=== PATIENT | female | born 1980 | race Caucasian/White ===

== ENCOUNTER 2020-04-29 17:25 | Outpatient (CLI) | payer OTHER, SELFPAY ==
--- NOTE | ~2020-04-29 | XR_ITS ---
EXAMINATION: XR lumbar spine 2-3V, XR sacroiliac joints min 3V DATE: 04/29/2020 17:47 INDICATION: Psoriatic arthritis TECHNIQUE: 1. Anteroposterior and lateral views of the lumbar spine, and cone-down lateral view of the lumbosacr al junction were obtained. 2. AP and left and right oblique views of the sacroiliac joints were obtained. COMPARISON: None. FINDINGS: Lumbar spine: Alignment is normal. Vertebral body and disc heights are normal. No significant facet osteoarthritis appreciated. Cholecystectomy clips in the right upper quadrant. Sacroiliac joints: Pelvic alignment is normal. No fractures or suspected avascular necrosis. Bilateral sacral iliac join t spaces are normal and symmetric. No evident erosions or subarticular sclerosis to suggest an inflam matory sacroiliitis. Bilateral hip joint spaces are normal. Bone islands at the left pubic body, left sacral ala and at the intertrochanteric right femur. IMPRESSION: 1. A few scattered bone islands. Otherwise normal radiographs of the lumbar spine and sacroiliac join ts. Reviewed, dictated and finalized at location A. IMPRESSION: 1. A few scattered bone islands. Otherwise normal radiographs of the lumbar spi ne and sacroiliac joints.
== END 2020-04-29 17:26 | disposition home or self-care (01) ==
PROVIDERS: PCP Internal Medicine
DX: L40.50 Arthropathic psoriasis, unspecified (principal); M24.08 Loose body, other site
CPT/HCPCS: 72100; 72202

== ENCOUNTER → 2020-11-19 11:28 | Outpatient (CLI) | payer OTHER, SELFPAY ==
--- NOTE | ~2020-11-19 | XR_ITS ---
EXAMINATION: XR knee LT 3V DATE: 11/19/2020 11:54 INDICATION: Left knee pain TECHNIQUE: Three views of the left knee were obtained. COMPARISON: None. FINDINGS: Alignment is normal. No fracture or osteochondral lesion. Joint spaces are normal with no e rosions. No joint effusion/synovitis. Soft tissues are unremarkable. IMPRESSION: 1. No acute osseous abnormality. Reviewed, dictated and finalized at location A. ROOFER
== END ==
PROVIDERS: PCP Internal Medicine; Visit Provider Nurse Practitioner
DX: M25.562 Pain in left knee (principal)
CPT/HCPCS: 73562

== ENCOUNTER 2020-12-09 10:51 | Outpatient (NON) | payer OTHER, SELFPAY ==
[2020-12-09 21:25] LABS: SARS-CoV-2 RNA PCR Positive
== END 2020-12-09 10:52 ==
LOC: ANHCOVIDDT 10:52
PROVIDERS: PCP Internal Medicine; Visit Provider Nurse Practitioner
DX: U07.1 COVID-19 (principal)
CPT/HCPCS: C9803; U0003; U0005

== ENCOUNTER 2021-01-09 16:13 | Outpatient (CLI) | payer OTHER, SELFPAY ==
--- NOTE | ~2021-01-09 | XR_ITS ---
XR chest 2V DATE: 01/09/2021 16:59 INDICATION: Cough for 2 weeks. Covid infection last month. TECHNIQUE: PA and lateral views COMPARISON: 11/27/2014 right rib series FINDINGS: Normal heart size. No hilar or mediastinal enlargement. No pulmonary infiltrate or consolid ation, pleural effusion or pulmonary vascular congestion or pneumothorax. IMPRESSION: No active cardiopulmonary disease Reviewed, dictated and finalized at location B. 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
== END 2021-01-09 16:14 | disposition home or self-care (01) ==
LOC: ANHIMG 16:17
PROVIDERS: PCP Internal Medicine; Visit Provider Clinical Nurse Specialist
DX: R05 Cough (principal)
CPT/HCPCS: 71046

== ENCOUNTER 2021-01-24 09:37 | Outpatient (CLI) | payer OTHER, BC, SELFPAY ==
--- NOTE | 2021-01-24 09:48 | ECHO_ITS ---
Patient Info Name: Ella Cheung Age: 40 years : 1980 Gender: Female Ht: 66 in Wt: 191 lbs BSA: 2.04 m2 HR: 75 bpm BP: 118 / 89 mmHg Technical Quality: Good Exam Date: 01/24/2021 10:07 AM Exam Location: [facility] Patient Status: Outpatient Admit Date: 01/24/2021 Staff Ordering Physician: Jennifer Yeager Ada Accommodation Consultant: Zoë Dooley RDCS Attending Provider: Jennifer Yeager Referring Physician: Shobha MENENDEZ; Exam Type: CA echo doppler color flow Study Info Indications R06.02 - Shortness of breath Complete two-dimensional, color flow and Doppler transthoracic echocardiogram is performed. Summary 1. Complete two-dimensional, color flow and Doppler transthoracic echocardiogram is performed. 2. Left ventricular chamber dimension is normal. 3. Left ventricular systolic function is normal, estimated at 60-65%. 4. The left ventricular diastolic function is normal. 5. E/e' 5 is not elevated. 6. Global longitudinal strain is normal at -18.6%. 7. No pulmonary hypertension, estimated pulmonary arterial systolic pressure is 18 mmHg. Left Ventricle E/e' 5 is not elevated. Global longitudinal strain is normal at -18.6%. Left ventricular chamber dimension is normal. Left ventricular systolic function is normal, estimated at 60-65%. The left ventricular diastolic function is normal. Right Ventricle Right ventricular chamber dimension is normal. Right ventricular systolic function is normal. Left Atria Left atrial chamber dimension is normal. Right Atria Right atrial chamber dimension is normal. Aortic Valve The aortic valve is trileaflet. There is no aortic valve stenosis. There is no aortic valve regurgitation. Pulmonic Valve There is no pulmonic regurgitation. Mitral Valve There is no mitral valve stenosis. There is no mitral valve regurgitation. Tricuspid Valve There is no tricuspid valve regurgitation. No pulmonary hypertension, estimated pulmonary arterial systolic pressure is 18 mmHg. Pericardium/Pleural There is no pericardial effusion. Inferior Vena Cava Normal inferior vena cava with >50% collapse upon inspiration consistent with normal right atrial pressure, 5 mmHg. Aorta The aortic root size at the sinus of Valsalva is normal. Left Ventricular Outflow Tract Name Value Normal LVOT 2D LVOT Diameter 2.0 cm LVOT Doppler LVOT Peak Gradient 3 mmHg LVOT Mean Gradient 2 mmHg LVOT VTI 17 cm LVOT VTI/AV VTI Ratio 1.0 LVOT Stroke Volume 57 ml LVOT CO 4.4 l/min LVOT CI 2.1 l/min/m2 Pulmonic Valve Name Value Normal RVOT Doppler RVOT Peak Gradient 2 mmHg
== END 2021-01-24 09:38 | disposition home or self-care (01) ==
PROVIDERS: PCP Internal Medicine; Visit Provider Clinical Nurse Specialist
DX: R06.02 Shortness of breath (principal)
CPT/HCPCS: 93306

== ENCOUNTER 2021-06-22 12:14 | Emergency (ER) | payer OTHER, SELFPAY ==
[2021-06-22 12:24] VITALS: BP 131/78; PULSE 77; RESP 20; TEMP 37.6; O2SAT 100
--- NOTE | 2021-06-22 13:14 | ED.HA ---
HPI - Headache General Chief Complaint: Headache Stated Complaint: headache since wednesday Time Seen by Provider: 06/22/21 13:16 Source: patient Mode of arrival: ambulatory Limitations: no limitations History of Present Illness HPI Narrative: Ella Cheung is a 41 yo female with a PMH of hypothyroid, migraine, hypertension, comes to [facility] with complaints of a headache that started on Wednesday and has been unresponsive to typical migraine medication. She is afebrile no nausea or vomiting has some photophobia is also complaining of pain at the back of her neck. Related Data Home Medications Medication Instructions Recorded Confirmed adalimumab 40 mg/0.8 mL 40 mg SUB-Q ONCE 10/05/19 06/22/21 subcutaneous syringe kit duloxetine 60 mg capsule,delayed 60 mg PO BID 10/05/19 06/22/21 release levothyroxine 100 mcg tablet 100 mcg PO DAILY 11/19/20 06/22/21 Allergies Allergy/AdvReac Type Severity Reaction Status Date / Time metronidazole Allergy Unknown Abdominal Verified 06/22/21 13:06 pain hydroquinone Allergy heart Verified 06/22/21 13:06 issues hydroxychloroquine AdvReac Other Verified 06/22/21 13:06 Review of Systems Review of Systems: CONSTITUTIONAL: Denies fever, chills, sweats. EYES: Denies visual changes, redness, discharge. ENT: Denies rhinorrhea, congestion, sore throat, otalgia. CARDIOVASCULAR: Denies chest pain, palpitations, edema. RESPIRATORY: Denies dyspnea, wheezing, cough GASTROINTESTINAL: Denies abdominal pain, no nausea, vomiting, diarrhea. GENITOURINARY: Denies dysuria, hematuria, abnormal discharge SKIN: Denies rash or itching. NEUROLOGIC: Denies numbness, or focal weakness. Mild photophobia, headache that she rates a 6 out of 10 PSYCHIATRIC: Denies anxiety or depression. States she no longer is concerned about Covid has got a rapid test yesterday that was negative PMFSH Past Medical History Medical History Allergies Bronchitis Chicken pox Cholecystectomy planned 1998 Depression Fibromyalgia H/O Magdalena thyroiditis History of ITP Hot flashes Hypertension Migraine Obesity Psoriatic arthritis Thyroid disease Surgical History Surgical History History of Mayur fundoplication 2016 History of partial hysterectomy 07/2015 Hx of laparoscopic gastric banding Family History Family History Grandparent Family history of malignant neoplasm of breast in first degree relative Cerebrovascular accident Father Depression Hypertension Anxiety Mother Hypertension Thyroid disease Social History Social History Smoking status: Never smoker Smoking end date: 11/22/08 Alcohol intake: current Alcohol use details: social Substance use: never Comments New give her Toradol yet I have to put nondominant side Exam Narrative: GENERAL: This is a well-nourished, well-developed patient, in mild distress. HEAD: normocephalic, atraumatic. EYES: PERRL. Sclera clear/white. Vision is grossly intact. EARS: External ears normal, auditory right canal clear and without drainage, left has mild erythema, TMs normal without perforation. Hearing grossly intact. NOSE: External nose normal without nasal discharge, nares without redness, no rhinorrhea. No sinus tenderness THROAT: Mucous membranes moist, posterior pharynx mild erythema NECK: Neck supple, non-tender CARDIOVASCULAR: Regular rate and rhythm without murmurs, gallops, or rubs. RESPIRATORY: Clear to auscultation. Breath sounds equal bilaterally. No wheezes, rales, or rhonchi. GASTROINTESTINAL: Abdomen soft, non-tender, SKIN: warm, intact with no suspicious lesions or rash, good texture and turgor. NEURO: awake, alert, and oriented to person, place and time. There were no obvious focal neurologic abnorm
[2021-06-22] MEDS: KETOROLAC (*BKC) 60 MG/2 ML VIAL IM (13:40)
[2021-06-22] MEDS: diphenhydrAMINE HCl CAP 25 MG CAPSULE PO (13:40)
[2021-06-23 13:59] LABS: SARS-CoV-2 RNA PCR Negative
== END 2021-06-22 15:06 | disposition home or self-care (01) ==
PROVIDERS: Emergency Provider Nurse Practitioner; PCP Internal Medicine
DX: R51.9 Headache, unspecified (principal); Z20.822 Contact with and (suspected) exposure to COVID-19; M79.7 Fibromyalgia; E06.3 Autoimmune thyroiditis; I10 Essential (primary) hypertension; L40.50 Arthropathic psoriasis, unspecified; E66.9 Obesity, unspecified; Z68.29 Body mass index [BMI] 29.0-29.9, adult
CPT/HCPCS: 36416; 86308; 87426; 96372; 99213; A9270; C9803; G0463; J1885; U0003; U0005

== ENCOUNTER → 2021-07-03 14:19 | Outpatient (CLI) | payer OTHER, SELFPAY ==
--- NOTE | ~2021-07-03 | MR_ITS ---
EXAMINATION: MR brain/brain stem wo/w con DATE: 07/03/2021 15:46 INDICATION: Migraine headache. TECHNIQUE: Magnetic resonance imaging (MRI) of the brain and brainstem was performed without and with 16 mL MultiHance intravenous contrast. Sequences included sagittal and axial T1-weighted FSE, axial diffusion-weighted FS EPI, axial T2*-weighted GRE, axial T2-weighted FLAIR Propeller, and axial T2-we ighted Propeller. Postcontrast sequences included axial and coronal T1-weighted FSE. Apparent diffusi on coefficient (ADC) maps were created. COMPARISON: Head CT 09/07/2017 FINDINGS: There is no intracranial hemorrhage, acute infarction, or abnormal intracranial mass lesion . The ventricles are normal in size. The orbits are normal. The paranasal sinuses are clear. There is a trace right mastoid effusion. IMPRESSION: 1. Normal brain. Reviewed, dictated and finalized at location A. IMPRESSION: 1. Normal brain.
[2021-07-03 15:10] LABS: Estimated Glomerular Filt Rate > 60
== END ==
PROVIDERS: PCP Internal Medicine; Visit Provider Nurse Practitioner
DX: G43.909 Migraine, unspecified, not intractable, without status migrainosus (principal)
CPT/HCPCS: 70553; A9577

== ENCOUNTER → 2021-08-20 02:21 | Outpatient (CLI) | payer OTHER, SELFPAY ==
[2021-08-21 07:19] LABS: SARS-CoV-2 RNA PCR Negative
== END ==
PROVIDERS: PCP Internal Medicine; Visit Provider Clinical Nurse Specialist
DX: Z20.822 Contact with and (suspected) exposure to COVID-19 (principal); R05 Cough
CPT/HCPCS: C9803; U0003; U0005

== ENCOUNTER → 2021-08-26 17:06 | Outpatient (CLI) | payer OTHER, SELFPAY ==
--- NOTE | ~2021-08-26 | XR_ITS ---
XR chest 2V DATE: 08/26/2021 17:25 INDICATION: Cough TECHNIQUE: 2 views COMPARISON: January 09, 2021 2 view chest FINDINGS: Normal heart size. No hilar or mediastinal enlargement. No pulmonary infiltrate or consolidation, pleural effusion or pulmonary vascular congestion or pneumo thorax. Surgical clips, right upper quadrant, consistent with cholecystectomy. IMPRESSION: No active cardiopulmonary disease Reviewed, dictated and finalized at location A.
== END ==
PROVIDERS: PCP Internal Medicine; Visit Provider Clinical Nurse Specialist
DX: R50.9 Fever, unspecified (principal)
CPT/HCPCS: 71046

== ENCOUNTER → 2021-08-27 03:40 | Outpatient (CLI) | payer OTHER, SELFPAY ==
[2021-08-27 18:05] LABS: SARS-CoV-2 RNA PCR Negative
== END ==
PROVIDERS: PCP Internal Medicine; Visit Provider Clinical Nurse Specialist
DX: R05.9 Cough, unspecified (principal); Z20.822 Contact with and (suspected) exposure to COVID-19
CPT/HCPCS: C9803; U0003; U0005

== ENCOUNTER 2022-02-25 01:19 | Day surgery (SDC) | payer OTHER, SELFPAY ==
[2022-02-16 12:36] VITALS: BMI 28.4
[2022-02-25] MEDS: LACTATED RINGERS 1,000 ML 150 ML IV CONT (12:07)
[2022-02-25 12:09] VITALS: BP 130/101; PULSE 95; RESP 20; TEMP 37.4; O2SAT 98
--- NOTE | 2022-02-25 12:13 | WPDANESEPPF ---
Anes - Initial Pre Proc Eval Procedure: Operation Date: 02/25/22 13:15 Proposed Procedures p Colonoscopy - Aryan Case MD Date/Time: 02/25/22 12:14 Surgeon: Aryan Case MD Pre Op Diagnosis: constipation Patient Data Age: 41 Gender: F Height: 1.68 m Weight: 82.7 kg Last Vital Signs Temp 37.4 C 02/25/22 12:09 Pulse 95 02/25/22 12:09 Resp 20 02/25/22 12:09 BP 130/101 H 02/25/22 12:09 Pulse Ox 98 02/25/22 12:09 Allergies Allergy/AdvReac Type Severity Reaction Status Date / Time hydroxychloroquine AdvReac Other Verified 02/25/22 11:55 Home Medications Medication Instructions Recorded Confirmed Type duloxetine 60 mg capsule,delayed 60 mg PO BID 10/05/19 02/16/22 History release levothyroxine 100 mcg tablet 100 mcg PO DAILY 11/19/20 02/16/22 History clobetasol 0.05 % topical cream 1 applic TOPICAL DAILY 12/02/21 02/16/22 History cyclobenzaprine 10 mg tablet 10 mg PO DAILY PRN tablet 12/02/21 02/16/22 History dicyclomine 20 mg tablet 20 mg PO DAILY PRN tablet 12/02/21 02/16/22 History ketoconazole 2 % topical cream 1 applic TOPICAL BID 12/02/21 02/16/22 History lisinopril 2.5 mg tablet 2.5 mg PO DAILY #90 tablet 12/02/21 02/16/22 Rx pantoprazole 40 mg tablet,delayed 40 mg PO BID tablet 12/02/21 02/16/22 History release rizatriptan 10 mg tablet See Rx Instructions PO .COMPLEX 12/02/21 02/16/22 History ustekinumab 45 mg/0.5 mL 45 mg SUBCUT ONCE 12/02/21 02/16/22 History subcutaneous syringe linaclotide 145 mcg capsule 145 mcg PO DAILY PRN #30 cap 01/29/22 02/16/22 Rx Patient hx anesthesia problems: none Family hx anesthesia problems: none Results Review: All pre-operative results and documents have been reviewed as part of the pre-operative evaluation. PENDING SALE TO [facility] Past Medical History Medical History Allergies Bronchitis Chicken pox Cholecystectomy planned 1998 Depression Fibromyalgia H/O Magdalena thyroiditis History of ITP Hot flashes Hypertension Migraine Obesity Psoriatic arthritis Thyroid disease Surgical History Surgical History History of Mayur fundoplication 2016 History of partial hysterectomy 07/2015 Hx of laparoscopic gastric banding Family History Family History Grandparent Family history of malignant neoplasm of breast in first degree relative Cerebrovascular accident Father Depression Hypertension Anxiety Mother Hypertension Thyroid disease Social History Social History Smoking packs per day: 0.5 Smoking cigarettes per day: 10.0 Years smoked: 15 Smoking pack-years: 7.50 Smoking status: Current every day smoker Tobacco type: cigarettes Smoking end date: 11/22/08 Additional smoking assessment comments: Currently vaping Alcohol intake: current Drinks per week: 2 Alcohol use details: social Substance use: never Substance use type: does not use Living arrangements: with family Spiritual care concerns: No Anes - Eval Final PreProcedure Day of Procedure 02/25/22 12:14 Patient weight: overweight Heart: regular rate and rhythm Lungs: decreased breath sounds Airway: Mallampati scale class II Neurological: alert and oriented Last oral intake: >/= 8 hours ASA classification: III Emergent: no Anesthetic plan: proceed Anesthesia type and monitoring: general GIVS and standard monitoring Results Review: All pre-operative results and documents have been reviewed as part of the pre-operative evaluation. Informed Consent: The patient's anesthetic plan and its attendant risks and benefits were discussed with the patient/family/POA. Questions were solicited and answers provided to the satisfaction of the patient/family/POA.
--- NOTE | 2022-02-25 13:10 | PM.HPGS ---
History of Present Illness History of Present Illness Consent: Risks, benefits, and alternatives have been discussed and questions answered. Patient agrees to proceed with procedure. Chief complaint: constipation Narrative: Ella Cheung is a 41 year old female with constipation for last few months, tried laxatives, MOM and suppositoy. Finally linzess. She has psoriasis used to be on humira and recently switched to stelara. Colonoscopy few years ago (says that had colitis years ago ) Review of Systems Constitutional: Constitutional: Denies headache(s) and Denies weakness Eyes: Eyes: Denies blurry vision ENT: Reports Normal hearing present, Denies headache(s) and Denies neck pain Cardiovascular: Cardiovascular: Denies chest pain and Denies dyspnea Respiratory: Respiratory: Denies dyspnea Gastrointestinal: Gastrointestinal: Reports no additional gastrointestinal complaints Genitourinary: Genitourinary: Denies dysuria Musculoskeletal: Musculoskeletal: Denies neck pain Integumentary/Breasts: Skin/Breast: Denies dry skin Neurologic: Reports Normal hearing present, Denies headache(s) and Denies weakness Psychiatric: Psychiatric: Denies anxiety Endocrine: Endocrine: Denies change in body appearance Hematologic/Lymphatic: Hematologic/Lymphatic: Denies easy bleeding Allergic/Immunologic: Allergic/Immunologic: Denies urticaria PMFSH Past Medical History Medical History (Updated 02/25/22 @ 13:11 by Aryan Case MD) Allergies Bronchitis Chicken pox Cholecystectomy planned 1998 Constipation Depression Fibromyalgia H/O Magdalena thyroiditis History of ITP Hot flashes Hypertension Migraine Obesity Psoriatic arthritis Thyroid disease Surgical History Surgical History History of Mayur fundoplication 2016 History of partial hysterectomy 07/2015 Hx of laparoscopic gastric banding Family History Family History Grandparent Family history of malignant neoplasm of breast in first degree relative Cerebrovascular accident Father Depression Hypertension Anxiety Mother Hypertension Thyroid disease Social History Social History Smoking packs per day: 0.5 Smoking cigarettes per day: 10.0 Years smoked: 15 Smoking pack-years: 7.50 Smoking status: Current every day smoker Tobacco type: cigarettes Smoking end date: 11/22/08 Additional smoking assessment comments: Currently vaping Alcohol intake: current Drinks per week: 2 Alcohol use details: social Substance use: never Substance use type: does not use Living arrangements: with family Spiritual care concerns: No Meds Home Medications and Allergies Home Medications Medication Instructions Recorded Confirmed Type duloxetine 60 mg capsule,delayed 60 mg PO BID 10/05/19 02/16/22 History release levothyroxine 100 mcg tablet 100 mcg PO DAILY 11/19/20 02/16/22 History clobetasol 0.05 % topical cream 1 applic TOPICAL DAILY 12/02/21 02/16/22 History cyclobenzaprine 10 mg tablet 10 mg PO DAILY PRN tablet 12/02/21 02/16/22 History dicyclomine 20 mg tablet 20 mg PO DAILY PRN tablet 12/02/21 02/16/22 History ketoconazole 2 % topical cream 1 applic TOPICAL BID 12/02/21 02/16/22 History lisinopril 2.5 mg tablet 2.5 mg PO DAILY #90 tablet 12/02/21 02/16/22 Rx pantoprazole 40 mg tablet,delayed 40 mg PO BID tablet 12/02/21 02/16/22 History release rizatriptan 10 mg tablet See Rx Instructions PO .COMPLEX 12/02/21 02/16/22 History ustekinumab 45 mg/0.5 mL 45 mg SUBCUT ONCE 12/02/21 02/16/22 History subcutaneous syringe linaclotide 145 mcg capsule 145 mcg PO DAILY PRN #30 cap 01/29/22 02/16/22 Rx Allergies Allergy/AdvReac Type Severity Reaction Status Date / Time hydroxychloroquine AdvReac Other Verified 02/25/22 11:55
[2022-02-25 13:32] VITALS: BP 118/65; PULSE 85; RESP 23; O2SAT 100
[2022-02-25 13:42] VITALS: BP 129/86; PULSE 78; RESP 17; O2SAT 100
[2022-02-25 13:52] VITALS: BP 145/97; PULSE 71; RESP 22; O2SAT 100
== END 2022-02-25 13:58 | disposition home or self-care (01) ==
PROVIDERS: PCP Internal Medicine; Visit Provider Internal Medicine Gastroenterology
PROC: 0DJD8ZZ Inspection of Lower Intestinal Tract, Via Natural or Artificial Opening Endoscopic (ICD-10-PCS; CPT 45378; principal; 2022-02-25 13:15)
DX: K59.00 Constipation, unspecified (principal); M79.7 Fibromyalgia; F32.A Depression, unspecified; E06.3 Autoimmune thyroiditis; D69.3 Immune thrombocytopenic purpura; I10 Essential (primary) hypertension; L40.50 Arthropathic psoriasis, unspecified; E66.9 Obesity, unspecified; F17.290 Nicotine dependence, other tobacco product, uncomplicated
CPT/HCPCS: 45378; J2704; J7120

== ENCOUNTER 2022-05-13 14:06 | Emergency (ER) | payer OTHER, SELFPAY ==
[2022-05-13 14:18] VITALS: BP 122/81; PULSE 84; RESP 20; TEMP 37.1; O2SAT 100
--- NOTE | 2022-05-13 14:42 | ED.URI ---
HPI - URI/Sore Throat General Chief Complaint: Upper Respiratory Infection Stated Complaint: Congestion/Fever/Chest Congestion Time Seen by Provider: 05/13/22 15:11 Source: patient and RN notes reviewed Mode of arrival: ambulatory Limitations: no limitations History of Present Illness HPI Narrative: 41-year-old female with history of psoriatic arthritis presents with concern for 3-day history of nasal congestion, fever, chest congestion. She denies cough, rhinorrhea, sore throat, ear pain. Reports body aches and fatigue. She reports she has been taking NyQuil at night to help her sleep. She denies other [id number] intervention. MD elicited complaint: cough and sore throat Related Data Home Medications Medication Instructions Recorded Confirmed duloxetine 60 mg capsule,delayed 60 mg PO BID 10/05/19 05/13/22 release (Cymbalta) levothyroxine 100 mcg tablet 100 mcg PO DAILY 11/19/20 05/13/22 (Synthroid) dicyclomine 20 mg tablet 20 mg PO DAILY PRN Diarrhea 12/02/21 05/13/22 rizatriptan 10 mg tablet See Rx Instructions PO .COMPLEX 12/02/21 05/13/22 ustekinumab 45 mg/0.5 mL 45 mg subcut ONCE 12/02/21 05/13/22 subcutaneous syringe (Stelara) Allergies Allergy/AdvReac Type Severity Reaction Status Date / Time hydroxychloroquine AdvReac Other Verified 05/13/22 15:08 Review of Systems Review of Systems: CONSTITUTIONAL: Reports malaise, fatigue, fever. EYES: Denies visual changes, redness, or discharge. ENT: Denies rhinorrhea, otalgia and sore throat. Reports congestion, sinus pain, CARDIOVASCULAR: Denies chest pain, palpitations, or edema. RESPIRATORY: Denies cough. Denies dyspnea. Reports chest congestion GASTROINTESTINAL: Denies abdominal pain, nausea, vomiting, diarrhea SKIN: Denies rash or itching. MUSCULOSKELETAL: Denies myalgia. NEUROLOGIC: Denies headache. All systems reviewed & are unremarkable except as noted in HPI and below PMFSH Past Medical History Medical History (Updated 05/13/22 @ 15:21 by Patricia Smith NP) Allergies Bronchitis Chicken pox Cholecystectomy planned 1998 Constipation Depression Fibromyalgia H/O Magdalena thyroiditis History of ITP Hot flashes Hypertension Migraine Obesity Psoriatic arthritis Thyroid disease Surgical History Surgical History History of Mayur fundoplication 2016 History of partial hysterectomy 07/2015 Hx of laparoscopic gastric banding Family History Family History Grandparent Family history of malignant neoplasm of breast in first degree relative Cerebrovascular accident Father Depression Hypertension Anxiety Mother Hypertension Thyroid disease Social History Social History Smoking packs per day: 0.5 Smoking cigarettes per day: 10.0 Years smoked: 15 Smoking pack-years: 7.50 Smoking status: Current every day smoker Tobacco type: cigarettes Smoking end date: 11/22/08 Additional smoking assessment comments: Currently vaping Alcohol intake: current Drinks per week: 2 Alcohol use details: social Substance use: never Substance use type: does not use Spiritual care concerns: No Comments At time of signature, agree with nursing past medical, surgical, social and family history. There is no relevant family history pertinent to the presenting complaint Exam Narrative: GENERAL: Nontoxic appearing and in no acute distress. HEAD: Normocephalic EYES: PERRLA, conjunctivae clear ENT: Nares clear, turbinates erythematous, clear discharge. Mucous membranes moist. TM pearly bryant with sharp light reflex bilaterally; no tragal tenderness. Oropharynx not erythematous without lesions. Tonsils not enlarged and without exudate, no drooling, no hoarseness, no trismus, uvula midline. NECK: Supple. No lymphadenopathy CHEST: Clear to auscultation,
== END 2022-05-13 15:25 | disposition home or self-care (01) ==
PROVIDERS: Emergency Provider Nurse Practitioner; PCP Internal Medicine
DX: J06.9 Acute upper respiratory infection, unspecified (principal); Z20.822 Contact with and (suspected) exposure to COVID-19; F17.290 Nicotine dependence, other tobacco product, uncomplicated; M79.7 Fibromyalgia; E06.3 Autoimmune thyroiditis; I10 Essential (primary) hypertension; L40.50 Arthropathic psoriasis, unspecified; Z90.711 Acquired absence of uterus with remaining cervical stump; Z98.84 Bariatric surgery status
CPT/HCPCS: 87426; 99213; C9803; G0463

== ENCOUNTER 2022-09-17 17:51 | Outpatient (CLI) | payer OTHER, SELFPAY ==
--- NOTE | ~2022-09-17 | XR_ITS ---
XR shoulder RT min 2V DATE: 09/17/2022 18:18 INDICATION: Psoriatic arthritis TECHNIQUE: 4 views COMPARISON: None FINDINGS: No fracture, dislocation, periosteal reaction or bone destruction. Normal alignment at the acromioclavicular and glenohumeral joints. No abnormal soft tissue calcification. IMPRESSION: Negative Reviewed, dictated and finalized at location A. IMPRESSION: Negative
== END 2022-09-17 17:52 | disposition home or self-care (01) ==
PROVIDERS: PCP Internal Medicine
DX: L40.50 Arthropathic psoriasis, unspecified (principal); M25.512 Pain in left shoulder; M25.561 Pain in right knee
CPT/HCPCS: 73030

== ENCOUNTER 2022-11-05 09:27 | Outpatient (CLI) | payer OTHER, SELFPAY ==
--- NOTE | 2022-11-05 11:00 | NEURO_ITS ---
Impression: # Complains of left upper extremity numbness and pain. # Normal nerve conduction study without evidence of Carpal Tunnel Syndrome or ulnar neuropathy. # Normal needle/EMG exam. # Clinical correlation recommended. Motor Nerve Conduction Upper Extremities Median Nerve Conduction Velocity (m/sec) Terminal Latency (msec) Response Voltage(mV) Elbow-Wrist Wrist Elbow Wrist Right Left 64 3.6 4 4 Ulnar Nerve Conduction Velocity (m/sec) Terminal Latency (msec) Response Voltage(mV) Above Elbow Below Elbow Wrist Above Elbow Below Elbow Wrist Right Left 63 2.3 5 6 F-Wave Latency Median (ms) Ulnar (ms) Right Left 26.9 26.5 Sensory Nerve Conduction Upper Extremities Median Nerve Stimulation Terminal Latency (msec) Wrist/Digit Response Voltage (uV) Wrist Right Left 2.9/2.9 60/61 Ulnar Nerve Stimulation Terminal Latency (msec) Wrist/Digit Response Voltage (uV) Wrist Right Left 2.1 62 Radial Nerve Terminal Latency (msec) Response Voltage(mV) Right Left 1.8 23 Left Right Muscles Examined Fibrillation Fasciculation Scarcity Voltage Duration Left Right Left Right Left Right Left Right Left Right Deltoid Biceps X Brachioradialis Triceps X Pronator Teres X Ext Indicis X Ext Digitorum X Abd Poll Brev X 1st Dorsal Interosseus X Abd Dig Min MTDD
== END 2022-11-05 09:28 | disposition home or self-care (01) ==
LOC: ANHNEURO 09:28
PROVIDERS: PCP Internal Medicine; Visit Provider Clinical Nurse Specialist
DX: G56.02 Carpal tunnel syndrome, left upper limb (principal)
CPT/HCPCS: 95886; 95909

== ENCOUNTER → 2022-11-30 12:45 | Outpatient (CLI) | payer OTHER, SELFPAY ==
--- NOTE | ~2022-11-30 | US_ITS ---
EXAMINATION: US transvaginal DATE: 11/30/2022 13:23 INDICATION: Pelvic tenderness and bloating, prior hysterectomy TECHNIQUE: Multiple endovaginal sonographic images of the pelvis were obtained. COMPARISON: None. FINDINGS: The uterus is surgically absent. The right ovary measures 2.1 x 1.1 x 1.2 cm. The left ovar y measures 1.8 x 1.1 x 1.2 cm. There is normal vascular flow in the ovaries. There is no free fluid i n the pelvis. IMPRESSION: 1. No sonographic correlate for the patient's symptoms. Reviewed, dictated and finalized at location B. [place] [employer]
== END ==
PROVIDERS: PCP Clinical Nurse Specialist; Visit Provider Clinical Nurse Specialist
DX: R19.8 Other specified symptoms and signs involving the digestive system and abdomen (principal); R14.0 Abdominal distension (gaseous)
CPT/HCPCS: 76830

== ENCOUNTER 2022-12-05 04:10 | Emergency (ER) | payer OTHER, SELFPAY ==
[2022-12-05] VITALS (21 sets, daily range): BP systolic 131–147; BP diastolic 75–98; PULSE 79–85; RESP 20; TEMP 37; O2SAT 79–100
--- NOTE | ~2022-12-05 | CT_ITS ---
EXAMINATION: CT abdomen pelvis w con DATE: 12/05/2022 05:39 INDICATION: Lower abdominal pain radiating to back. Abdominal bloating. Nausea. History of gastric sl eeve surgery TECHNIQUE: Computed tomography (CT) of the abdomen and pelvis was performed with 100 CC Omnipaque 350 intravenous contrast. Automated exposure control and iterative reconstruction technique were employe d. Exam dose: 737.87 mGy-cm total exam DLP. COMPARISON: 12/10/2022 pelvic ultrasound To abdominal ultrasound examination FINDINGS: Indeterminate approximately 5 mm opacity at middle lobe. No infiltrate or consolidation at the lung bases. Normal heart size. No pericardial or pleural effusion. Status post cholecystectomy. Status post gastric sleeve surgery. The liver, spleen, pancreas, and adrenal glands and kidneys are unremarkable. No bile duct or pancrea tic duct dilatation. No urinary tract calculus or hydroureteronephrosis. The urinary bladder is relat ively evacuated. Status post hysterectomy. Normal caliber of the abdominal aorta. No intraperitoneal or retroperitoneal or pelvic mass lesion or adenopathy or ascites. Bilateral inferior vena cava, normal variant. There is a prominent amount of fecal material within the colon. No small or large bowel dilatation or bowel wall thickening, pneumatosis or intraperitoneal free air is noted. Occasional distal small bow el air-fluid levels Small fat-containing umbilical hernia. Included skeletal structures are unremarkable. IMPRESSION: Status post cholecystectomy Status post gastric sleeve surgery Status post hysterectomy There is some fluid levels of the distal small bowel; consider enteritis or mild adynamic ileus Prominent amount of fecal material in the colon Reviewed, dictated and finalized at [facility]. Reviewed, dictated and finalized at [facility]. 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
[2022-12-05 04:53] LABS: Basophils Absolute Auto 0.1 K/mm3 (0.0-0.1); Basophils Percent Auto 1.1 % (0.2-1.2); Eosinophils Absolute Auto 0.3 K/mm3 (0-0.3); Eosinophils Percent Auto 3.9 % (0-4.4); Hematocrit 41.6 % (37.0-47.0); Hemoglobin 12.8 g/dL (12.0-15.0); Immature Granulocyte Absolute 0.01 K/mm3 (0.00-0.031); Immature Granulocyte Percent A 0.2 % (0-0.5); Lymphocytes Absolute Auto 2.28 K/mm3 (0.9-3.2); Lymphocytes Percent Auto 35.2 % (18.3-44.2); Mean Corpuscular HGB Conc 30.8 g/dl (32-36); Mean Corpuscular Hemoglobin 25.9 pg (26-34); Mean Platelet Volume 10.1 fl (7.4-10.4); Monocytes Absolute Auto 0.6 K/mm3 (0.1-0.6); Monocytes Percent Auto 9.7 % (2.6-8.5); Neutrophils Absolute Auto 3.2 K/mm3 (1.3-6.7); Neutrophils Percent Auto 49.9 % (45.5-73.1); Platelet Count Result 244 k/mm3 (150-375); Red Blood Count 4.95 M/mm3 (4.2-5.4); Red Cell Distribution Width 13.1 % (11.5-14.5); White Blood Count 6.5 K/mm3 (4.5-10.0)
[2022-12-05 04:54] LABS: Appearance Urine Clear (Clear); Bilirubin Urine 1+ (Negative); Blood Urine Negative (Negative); Color Urine Yellow (Yellow); Glucose Urine UA Negative (Negative); Ketones Urine Negative (Negative); Leukocyte Esterase Ur Negative LEU/UL (Negative); Nitrate Urine Negative (Negative); Protein Urine Trace mg/dL (Negative); Specific Grav Ur >= 1.030 (1.001-1.035); Urobilinogen Urine 0.2 mg/dL (<2.0); pH Urine 5.5 (5.0-9.0)
[2022-12-05 05:01] LABS: Bacteria Urine Trace /hpf; Mucus Urine Moderate /lpf; RBC Urine 0-2 /hpf (0-2); Squamous Epithelial Cell Urine Occasional /hpf (Few); WBC Urine 0-3 /hpf
[2022-12-05 05:02] LABS: Add Urine Microscopic? YES
[2022-12-05 05:04] LABS: Alanine Aminotransferase 23 U/L (6-35); Albumin Level 3.8 g/dL (3.5-5.1); Alkaline Phosphatase 56 U/L (38-126); Anion Gap 3 mmol/L (8-16); Aspartate Amino Transferase 31 U/L (14-36); Bilirubin,Total 0.5 mg/dL (0.2-1.3); Blood Urea Nitrogen 7 mg/dL (7-17); Calcium 8.2 mg/dL (8.4-10.2); Carbon Dioxide 31 mmol/L (22-30); Chloride 102 mmol/L (98-107); Estimated CRCL calculation 84 ml/min; Estimated Glomerular Filt Rate > 60; Glucose 92 mg/dL (65-110); Lipase 75 U/L (23-300); Potassium 4.2 mmol/L (3.4-5.0); Sodium 136 mmol/L (137-145)
[2022-12-05] MEDS: SODIUM CHLORIDE 0.9% IV 1,000 ML 999 ML IV CONT (05:08)
[2022-12-05] MEDS: MORPHINE SULFATE (*CRX) 4 MG/ML INJ IV PUSH (05:09)
[2022-12-05] MEDS: ONDANSETRON INJ 4 MG/2 ML VIAL IV PUSH (05:09)
--- NOTE | 2022-12-05 05:16 | ED.ABDPAIN ---
HPI - Abdominal Pain General Chief Complaint: Abdominal Pain Stated Complaint: abd pain Time Seen by Provider: 12/05/22 04:20 Source: patient, RN notes reviewed and old records reviewed Mode of arrival: ambulatory Limitations: no limitations History of Present Illness HPI narrative: This is 42 year old female who presents for evaluation of lower abdominal pain for 2 weeks. She reports constant lower abdominal pain and pressure . She also reports bloating. She was evaluated by PCP on this week and she had labs and US ordered. Her results were normal so she has been referred to GI. She has appointment with DR. Vasquez on Wednesday. She reports pain has has worsened last night and she was having difficulty sleeping. She also reports lower back pain . She denies dysuria, vomiting, diarrhea or constipation. She has history of partial hysterectomy. She rates pain as 6/10. She has not taken medication for pain. She has tried heating pad for relief of her pain. Related Data Home Medications Medication Instructions Recorded Confirmed duloxetine 60 mg capsule,delayed 60 mg PO BID 10/05/19 11/27/22 release (Cymbalta) levothyroxine 100 mcg tablet 100 mcg PO DAILY 11/19/20 11/27/22 (Synthroid) dicyclomine 20 mg tablet 20 mg PO DAILY PRN Diarrhea 12/02/21 11/27/22 rizatriptan 10 mg tablet See Rx Instructions PO .COMPLEX 12/02/21 11/27/22 atogepant 10 mg tablet (Qulipta) 10 mg PO DAILY 10/21/22 11/27/22 ustekinumab 45 mg/0.5 mL 45 mg subcut .COMPLEX 11/27/22 11/27/22 subcutaneous syringe (Stelara) Allergies Allergy/AdvReac Type Severity Reaction Status Date / Time hydroxychloroquine AdvReac Other Verified 12/05/22 04:30 Review of Systems Constitutional: Constitutional: Denies weakness Cardiovascular: Cardiovascular: Denies syncope, Denies rapid heart rate, Denies irregular heart rhythm, Denies leg edema and Denies dyspnea Respiratory: Respiratory: Denies chest congestion, Denies hemoptysis, Denies excessive phlegm production and Denies dyspnea Gastrointestinal: Gastrointestinal: Reports abdominal pain, Reports bloating, Denies hematochezia, Denies diarrhea, Reports nausea and Denies vomiting Genitourinary: Genitourinary: Denies hematuria, Denies dysuria and Reports pelvic pain Musculoskeletal: Musculoskeletal: Denies joint swelling, Denies loss of height and Denies muscle weakness Neurologic: Denies syncope, Denies focal weakness and Denies weakness PMFSH Past Medical History Medical History Allergies Bronchitis Chicken pox Cholecystectomy planned 1998 Constipation Depression Fibromyalgia H/O Magdalena thyroiditis History of ITP Hot flashes Hypertension Migraine Obesity Psoriatic arthritis Thyroid disease Yeast infection Surgical History Surgical History History of Mayur fundoplication 2016 History of partial hysterectomy 07/2015 Hx of laparoscopic gastric banding Family History Family History (Reviewed 11/27/22 @ 10:45 by Margoth Odell [facility]) Grandparent Family history of malignant neoplasm of breast in first degree relative Cerebrovascular accident Father Depression Hypertension Anxiety Mother Hypertension Thyroid disease Social History Social History Smoking packs per day: 0.5 Smoking cigarettes per day: 10.0 Years smoked: 15 Smoking pack-years: 7.50 Smoking status: Current every day smoker Tobacco type: cigarettes Smoking end date: 11/22/08 Additional smoking assessment comments: Currently vaping Alcohol intake: current Drinks per week: 2 Alcohol use details: social Substance use: never Substance use type: does not use Lack of Transportation: No Lack of Food: Never True Current Housing: I Have Housing Concerned About Future Housing: No Difficulty Paying Gas/Electric
== END 2022-12-05 07:36 | disposition home or self-care (01) ==
PROVIDERS: Emergency Provider General Practice; PCP Internal Medicine
DX: R14.0 Abdominal distension (gaseous) (principal); K59.00 Constipation, unspecified; E06.3 Autoimmune thyroiditis; I10 Essential (primary) hypertension; L40.50 Arthropathic psoriasis, unspecified; E07.9 Disorder of thyroid, unspecified; E66.9 Obesity, unspecified; Z68.29 Body mass index [BMI] 29.0-29.9, adult; M79.7 Fibromyalgia; F32.A Depression, unspecified; F17.290 Nicotine dependence, other tobacco product, uncomplicated; Z90.711 Acquired absence of uterus with remaining cervical stump; Z98.84 Bariatric surgery status
CPT/HCPCS: 36415; 74177; 80053; 81001; 81025; 83690; 85025; 96361; 96374; 96375; 99284; J2270; J2405; J7030; Q9967

== ENCOUNTER 2022-12-09 11:30 | Outpatient (CLI) | payer OTHER, SELFPAY ==
--- NOTE | ~2022-12-09 | XR_ITS ---
XR abdomen/kub 1V DATE: 12/09/2022 11:55 INDICATION: Abdominal distention. Lower abdominal pain radiating to back. Abdominal bloating, nausea. TECHNIQUE: 2 supine AP views COMPARISON: 12/05/2022 CT abdomen pelvis FINDINGS: There is probably gaseous distention of the cecum, ascending and transverse colon. No bowel obstruction is evident. No visceromegaly is detected. Surgical clips, right upper quadrant, consistent with cholecystectomy. Radiopaque sutures overlie the left upper quadrant, consistent with history of gastric sleeve surgery . IMPRESSION: Gaseous distention of the colon; no apparent obstruction Status post gastric sleeve surgery Status post cholecystectomy Reviewed, dictated and finalized at [facility]. Reviewed, dictated and finalized at [facility]. 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
== END 2022-12-09 11:31 | disposition home or self-care (01) ==
PROVIDERS: PCP Internal Medicine; Visit Provider Nurse Practitioner
DX: K56.7 Ileus, unspecified (principal); K58.1 Irritable bowel syndrome with constipation; R14.0 Abdominal distension (gaseous); R93.89 Abnormal findings on diagnostic imaging of other specified body structures; Z90.49 Acquired absence of other specified parts of digestive tract
CPT/HCPCS: 74018

== ENCOUNTER 2022-12-11 15:10 | Outpatient (CLI) | payer OTHER, SELFPAY ==
--- NOTE | ~2022-12-11 | CT_ITS ---
EXAMINATION: CT diagnostic chest w con DATE: 12/11/2022 15:53 INDICATION: Indeterminate 5 mm middle lobe opacity noted on 12/05/2022 CT abdomen pelvis examination TECHNIQUE: Computed tomography (CT) of the chest was performed without intravenous contrast. Automate d exposure control and iterative reconstruction technique were employed. Exam dose: 170.11 mGy-cm to edy exam DLP. COMPARISON: None FINDINGS: There are occasional bilateral noncalcified pulmonary nodules including the followin.6 mm opacity, superior segment of right lower lobe (series 4 image 57) There is an approximately 2 x 4 mm soft tissue opacity of the middle lobe (series 4 image 73). 2.2 mm opacity of medial segment middle lobe (image 60) 4.9 mm posterior basilar segment left lower lobe nodule (image 78). No pulmonary infiltrate or consolidation. Normal heart size. No thoracic aortic aneurysm or dissection. No pericardial or pleural effusion. No hilar or mediastinal mass lesion or lymphadenopathy. Hepatic steatosis. Status post cholecystectomy. Postoperative change of the stomach. Normal morphology of the adrenal glands. No suspicious osteolytic or osteoblastic lesions. IMPRESSION: Occasional bilateral pulmonary nodular densities smaller than 5 mm; if there are risk fa ctors for lung cancer such as smoking or radon exposure, [address] thorax is recommended. If there are no such risk factors, then CT thorax follow-up in 12 months is recommended. Reviewed, dictated and finalized at [facility]. Reviewed, dictated and finalized at [facility]. 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 If there are no such risk factors, then CT thorax follow-up in 12 months is recommended.
--- NOTE | ~2022-12-11 | XR_ITS ---
XR knee LT 2V DATE: 12/11/2022 15:46 INDICATION: Psoriatic arthritis TECHNIQUE: Standing AP and lateral views COMPARISON: 11/19/2020 left knee FINDINGS: No fracture or dislocation or joint effusion. Joint spaces are well preserved. No radiopaqu e intra-articular loose body or, calcinosis or periarticular spurring. IMPRESSION: Negative Reviewed, dictated and finalized at [facility]. CROCHETER IMPRESSION: Negative
--- NOTE | ~2022-12-11 | XR_ITS ---
XR knee RT 2V DATE: 12/11/2022 15:46 INDICATION: Psoriatic arthritis TECHNIQUE: Standing AP and lateral views COMPARISON: None FINDINGS: Joint spaces are well preserved. No periarticular spurring. No radiopaque intra-articular l oose body or chondrocalcinosis. No fracture or dislocation or joint effusion. No periosteal reaction or bone destruction. IMPRESSION: Negative Reviewed, dictated and finalized at [facility]. OFFICER IMPRESSION: Negative
== END 2022-12-11 15:11 | disposition home or self-care (01) ==
PROVIDERS: PCP Internal Medicine; Visit Provider Clinical Nurse Specialist
DX: Z72.0 Tobacco use (principal); L40.50 Arthropathic psoriasis, unspecified; Z79.899 Other long term (current) drug therapy; R91.8 Other nonspecific abnormal finding of lung field
CPT/HCPCS: 71260; 73560; Q9967

== ENCOUNTER 2023-02-18 14:51 | Emergency (ER) | payer OTHER, SELFPAY ==
[2023-02-18 15:03] VITALS: BP 139/81; PULSE 85; RESP 16; TEMP 37.3; O2SAT 100
--- NOTE | 2023-02-18 15:27 | ED.EAR ---
HPI - Ear Problem General Chief complaint: Ear Stated complaint: EARACHE/SINUS PRESSURE/OFF BALANCE Source: patient and RN notes reviewed History of Present Illness HPI Narrative: 42-year-old female presents to urgent care with complaints right ear discomfort. Patient states on Wednesday she started to feel some congestion which is now right side her face. Patient reports some lightheadedness the other day. Patient states she feels like there is fluid in her ears. Denies any fevers, chills, vomiting, chest pain, or shortness of breath. Patient states while waiting in the waiting room today, a crown fell off of her right upper molar. Patient has already spoke to her dentist. Some parts of this dictation were generated by voice recognition software and may contain typographical and/or grammatical inaccuracies. Related Data Home Medications Medication Instructions Recorded Confirmed duloxetine 60 mg capsule,delayed 60 mg PO BID 10/05/19 02/03/23 release (Cymbalta) levothyroxine 100 mcg tablet 100 mcg PO DAILY 11/19/20 02/03/23 (Synthroid) dicyclomine 20 mg tablet 20 mg PO DAILY PRN Diarrhea 12/02/21 02/03/23 rizatriptan 10 mg tablet See Rx Instructions PO .COMPLEX 12/02/21 02/03/23 atogepant 10 mg tablet (Qulipta) 10 mg PO DAILY 10/21/22 02/03/23 ustekinumab 45 mg/0.5 mL 45 mg subcut .COMPLEX 11/27/22 02/03/23 subcutaneous syringe (Stelara) buspirone 10 mg tablet mg 02/18/23 zaleplon 5 mg capsule mg 02/18/23 Allergies Allergy/AdvReac Type Severity Reaction Status Date / Time hydroxychloroquine AdvReac Other Verified 02/18/23 15:16 Review of Systems Review of Systems: Pertinent positives and pertinent negatives per HPI. [facility] Past Medical History Medical History Allergies Bloating Bronchitis Chicken pox Cholecystectomy planned 1998 Colon cancer screening Constipation Depression Fibromyalgia H/O Magdalena thyroiditis History of ITP Hot flashes Hypertension Ileus Irritable bowel syndrome with constipation Migraine Obesity Psoriatic arthritis Thyroid disease Yeast infection Surgical History Surgical History History of Mayur fundoplication 2016 History of partial hysterectomy 07/2015 Hx of laparoscopic gastric banding Family History Family History Grandparent Family history of malignant neoplasm of breast in first degree relative Cerebrovascular accident Father Depression Hypertension Anxiety Mother Hypertension Thyroid disease Social History Social History Smoking packs per day: 0.5 Smoking cigarettes per day: 10.0 Years smoked: 15 Smoking pack-years: 7.50 Smoking status: Current every day smoker Tobacco type: cigarettes Smoking end date: 11/22/08 Additional smoking assessment comments: Currently vaping Alcohol intake: current Drinks per week: 2 Alcohol use details: social Substance use: never Substance use type: does not use Lack of Transportation: No Lack of Food: Never True Current Housing: I Have Housing Concerned About Future Housing: No Difficulty Paying Gas/Electric Bills: No Difficulty Paying for Meds: No Currently Unemployed: No Education: Bachelor's Degree Difficulty w/ Childcare or Family Care: No Living arrangements: with family Spiritual care concerns: No Comments At the time of my signature, I reviewed and agree with the nursing past medical, surgical, social, and family history. There is no relevant family history pertinent to the patient complaint. Exam Narrative: GENERAL: This is a well-nourished, well-developed patient, in no apparent distress. HEAD: normocephalic, atraumatic. EYES: PERRL. Sclera clear/white. Vision is grossly intact. EARS: External ears normal, auditory canals
== END 2023-02-18 15:40 | disposition home or self-care (01) ==
PROVIDERS: Emergency Provider Nurse Practitioner Family; PCP Internal Medicine
DX: R42 Dizziness and giddiness (principal); J06.9 Acute upper respiratory infection, unspecified; F17.290 Nicotine dependence, other tobacco product, uncomplicated; M79.7 Fibromyalgia; I10 Essential (primary) hypertension; E66.9 Obesity, unspecified; L40.50 Arthropathic psoriasis, unspecified; E06.3 Autoimmune thyroiditis; Z90.711 Acquired absence of uterus with remaining cervical stump
CPT/HCPCS: 99213; G0463

== ENCOUNTER → 2023-03-19 09:53 | Outpatient (CLI) | payer OTHER, SELFPAY ==
--- NOTE | ~2023-03-19 | MR_ITS ---
MRI of the brain Clinical History: Dizziness Technique: Axial and sagittal T1-weighted images were acquired. These were followed by axial T2-weigh sana, diffusion weighted, gradient, and FLAIR images. Following intravenous administration of 17 cc Mu ltiHance gadolinium, T1-weighted fat-sat imaging was performed in the axial and coronal planes. COMPARISON: 07/03/2021 Findings: No abnormal signal seen in the brain parenchyma. No acute infarct, intracranial hemorrhage, or mass lesion. Ventricles and subarachnoid spaces are unremarkable. Orbits are unremarkable. Paranasal sinuses and m astoid air cells are clear. Major intracranial flow voids are intact. Sagittal midline structures are intact. No abnormal postcontrast enhancement identified. IMPRESSION: Unremarkable exam. Reviewed, dictated and finalized at location [facility]. IMPRESSION: Unremarkable exam.
== END ==
PROVIDERS: PCP Internal Medicine; Visit Provider Clinical Nurse Specialist
DX: R42 Dizziness and giddiness (principal)
CPT/HCPCS: 70553; A9577

== ENCOUNTER 2023-03-31 08:58 | Emergency (ER) | payer OTHER, SELFPAY ==
--- NOTE | ~2023-03-31 | XR_ITS ---
EXAMINATION: XR chest 2V 03/31/2023 09:49 INDICATION: Chest tightness PROCEDURE: 2 view chest COMPARISON: 08/26/2021 FINDINGS: The lungs are clear. The cardiomediastinal silhouette is within normal limits. There are no pleural effusions. There is no pneumothorax suspected. IMPRESSION: 1: NO ACUTE CARDIOPULMONARY DISEASE. Reviewed, dictated and finalized at [facility].
[2023-03-31 09:35] VITALS: BP 133/103; PULSE 83; RESP 26; TEMP 36.9; O2SAT 99
--- NOTE | 2023-03-31 09:48 | ED.URI ---
HPI - URI/Sore Throat General Chief Complaint: Upper Respiratory Infection Stated Complaint: COUGH/TIRED/NOT SLEEPING/RIB PAIN Time Seen by Provider: 03/31/23 09:49 Source: patient and RN notes reviewed Mode of arrival: ambulatory Limitations: no limitations History of Present Illness HPI Narrative: 42-year-old female presented for complaint of nonproductive cough, sinus congestion and drainage and left rib pain for 3 days. Endorses she was unable to sleep last night due to cough. States similar symptoms originally started about 10 days ago, she felt better for about 4 days, then restarted with symptoms. has similar symptoms with same onset. Took negative covid test 5 days ago and 3 days ago. Patient has increased her fluid intake, taking theraflu, DayQuil, Mucinex, Flonase without significant change in symptoms. She denies chest pain, palpitations, shortness breath, wheezing nausea vomiting, fevers or chills. MD elicited complaint: cough Related Data Home Medications Medication Instructions Recorded Confirmed duloxetine 60 mg capsule,delayed 60 mg PO BID 10/05/19 02/18/23 release (Cymbalta) levothyroxine 100 mcg tablet 100 mcg PO DAILY 11/19/20 02/18/23 (Synthroid) dicyclomine 20 mg tablet 20 mg PO DAILY PRN Diarrhea 12/02/21 02/18/23 rizatriptan 10 mg tablet See Rx Instructions PO .COMPLEX 12/02/21 02/18/23 atogepant 10 mg tablet (Qulipta) 60 mg PO DAILY 10/21/22 02/18/23 ustekinumab 45 mg/0.5 mL 45 mg subcut .COMPLEX 11/27/22 02/18/23 subcutaneous syringe (Stelara) buspirone 10 mg tablet 10 mg PO BID 02/18/23 02/18/23 zaleplon 5 mg capsule 5 - 10 mg PO HS PRN Insomnia 02/18/23 02/18/23 Allergies Allergy/AdvReac Type Severity Reaction Status Date / Time hydroxychloroquine AdvReac Other Verified 02/18/23 15:16 Review of Systems Review of Systems: CONSTITUTIONAL: Endorses malaise, Denies chills, sweats, fever EYES: Denies visual changes, redness, or discharge ENT: Reports rhinorrhea, congestion, denies otalgia, sore throat CARDIOVASCULAR: Denies chest pain, palpitations, edema RESPIRATORY: Reports cough, post nasal drainage. Denies dyspnea GASTROINTESTINAL: Denies abdominal pain, nausea, vomiting, diarrhea SKIN: Denies rash or itching MUSCULOSKELETAL: Endorses rib pain NEUROLOGIC: Denies headache PMFSH Past Medical History Medical History Allergies Bloating Bronchitis Chicken pox Cholecystectomy planned 1998 Colon cancer screening Constipation Depression Fibromyalgia H/O Magdalena thyroiditis History of ITP Hot flashes Hypertension Ileus Irritable bowel syndrome with constipation Migraine Obesity Psoriatic arthritis Thyroid disease Yeast infection Surgical History Surgical History History of Mayur fundoplication 2016 History of partial hysterectomy 07/2015 Hx of laparoscopic gastric banding Family History Family History Grandparent Family history of malignant neoplasm of breast in first degree relative Cerebrovascular accident Father Depression Hypertension Anxiety Mother Hypertension Thyroid disease Social History Social History Smoking packs per day: 0.5 Smoking cigarettes per day: 10.0 Years smoked: 15 Smoking pack-years: 7.50 Smoking status: Current every day smoker Tobacco type: cigarettes Smoking end date: 11/22/08 Additional smoking assessment comments: Currently vaping Alcohol intake: current Drinks per week: 2 Alcohol use details: social Substance use: never Substance use type: does not use Lack of Transportation: No Lack of Food: Never True Current Housing: I Have Housing Concerned About Future Housing: No Difficulty Paying Gas/Electric Bills: No Difficulty Paying for Meds: No Currentl
== END 2023-03-31 10:14 | disposition home or self-care (01) ==
PROVIDERS: Emergency Provider Nurse Practitioner Family; PCP Internal Medicine
DX: R05.9 Cough, unspecified (principal); J06.9 Acute upper respiratory infection, unspecified; F17.290 Nicotine dependence, other tobacco product, uncomplicated; M79.7 Fibromyalgia; I10 Essential (primary) hypertension; L40.50 Arthropathic psoriasis, unspecified; E06.3 Autoimmune thyroiditis; F32.A Depression, unspecified
CPT/HCPCS: 71046; 99213; G0463

== ENCOUNTER 2023-04-15 17:33 | Emergency (ER) | payer OTHER, SELFPAY ==
--- NOTE | 2023-04-15 17:36 | ED.FEMALEGU ---
HPI - Female Genitourinary General Chief complaint: Urogenital-Female Stated complaint: poss UTI Time Seen by Provider: 04/15/23 17:36 Source: patient and RN notes reviewed History of Present Illness HPI Narrative: Patient is a 42-year-old female presents to urgent care with complaints of possible UTI due to midback pain, fatigue and urgency. Patient states she did an [id number] test at home which was positive. Patient states that she tried to speak with her PCP and they told her to go to the urgent care. Patient has taken [id number] azo. No other acute complaints. Denies any fever, nausea, vomiting or abdominal pain. No acute distress noted. Patient aware of the plan of care. Some parts of this dictation were generated by voice recognition software and may contain typographical and/or grammatical inaccuracies. Related Data Home Medications Medication Instructions Recorded Confirmed duloxetine 60 mg capsule,delayed 60 mg PO BID 10/05/19 02/18/23 release (Cymbalta) levothyroxine 100 mcg tablet 100 mcg PO DAILY 11/19/20 02/18/23 (Synthroid) dicyclomine 20 mg tablet 20 mg PO DAILY PRN Diarrhea 12/02/21 02/18/23 rizatriptan 10 mg tablet See Rx Instructions PO .COMPLEX 12/02/21 02/18/23 atogepant 10 mg tablet (Qulipta) 60 mg PO DAILY 10/21/22 02/18/23 ustekinumab 45 mg/0.5 mL 45 mg subcut .COMPLEX 11/27/22 02/18/23 subcutaneous syringe (Stelara) buspirone 10 mg tablet 10 mg PO BID 02/18/23 02/18/23 zaleplon 5 mg capsule 5 - 10 mg PO HS PRN Insomnia 02/18/23 02/18/23 phentermine 15 mg capsule mg 04/15/23 topiramate 50 mg tablet mg 04/15/23 Allergies Allergy/AdvReac Type Severity Reaction Status Date / Time hydroxychloroquine AdvReac Other Verified 02/18/23 15:16 Review of Systems Review of Systems: CONSTITUTIONAL: Denies fever, chills, or sweats. Reports of fatigue EYES: Denies visual changes, redness, or discharge. ENT: Denies rhinorrhea, congestion, sore throat, or otalgia. CARDIOVASCULAR: Denies chest pain, palpitations, or edema. RESPIRATORY: Denies cough or dyspnea. GASTROINTESTINAL: Denies abdominal pain, nausea, vomiting, or diarrhea. GENITOURINARY: Reports of urinary urgency, back pain SKIN: Denies rash or itching. MUSCULOSKELETAL: Denies back pain, joint pain, or myalgia. NEUROLOGIC: Denies headache, numbness, or weakness. All other systems reviewed are negative, except as documented in HPI. [facility] Past Medical History Medical History Allergies Bloating Bronchitis Chicken pox Cholecystectomy planned 1998 Colon cancer screening Constipation Depression Fibromyalgia H/O Magdalena thyroiditis History of ITP Hot flashes Hypertension Ileus Irritable bowel syndrome with constipation Migraine Obesity Psoriatic arthritis Thyroid disease Yeast infection Surgical History Surgical History History of Mayur fundoplication 2016 History of partial hysterectomy 07/2015 Hx of laparoscopic gastric banding Family History Family History Grandparent Family history of malignant neoplasm of breast in first degree relative Cerebrovascular accident Father Depression Hypertension Anxiety Mother Hypertension Thyroid disease Social History Social History Smoking packs per day: 0.5 Smoking cigarettes per day: 10.0 Years smoked: 15 Smoking pack-years: 7.50 Smoking status: Current every day smoker Tobacco type: cigarettes Smoking end date: 11/22/08 Additional smoking assessment comments: Currently vaping Alcohol intake: current Drinks per week: 2 Alcohol use details: social Substance use: never Substance use type: does not use Lack of Transportation: No Lack of Food: Never True Current Housing: I Have Housing Concerned
[2023-04-15 17:38] VITALS: BP 121/91; PULSE 92; RESP 16; TEMP 36.8; O2SAT 100
== END 2023-04-15 18:29 | disposition home or self-care (01) ==
PROVIDERS: Emergency Provider Nurse Practitioner Family; PCP Internal Medicine
DX: N30.90 Cystitis, unspecified without hematuria (principal); F17.290 Nicotine dependence, other tobacco product, uncomplicated; M79.7 Fibromyalgia; I10 Essential (primary) hypertension; L40.50 Arthropathic psoriasis, unspecified; Z90.711 Acquired absence of uterus with remaining cervical stump; Z98.84 Bariatric surgery status; F32.A Depression, unspecified
CPT/HCPCS: 81003; 87086; 87088; 99213; G0463

== ENCOUNTER → 2023-04-21 10:55 | Outpatient (CLI) | payer OTHER, SELFPAY ==
--- NOTE | ~2023-04-21 | XR_ITS ---
Lumbosacral Spine: AP and lateral views Clinical History: Pain Findings: The normal lordotic curve is maintained. The vertebral bodies and posterior elements are i ntact. The intervertebral disc spaces are preserved. The sacroiliac joints are normally outlined. Impression: No significant abnormality. Reviewed, dictated and finalized at [facility]. Impression: No significant abnormality.
== END ==
PROVIDERS: PCP Internal Medicine; Visit Provider Clinical Nurse Specialist
DX: M54.50 Low back pain, unspecified (principal)
CPT/HCPCS: 72100

== ENCOUNTER → 2023-06-23 10:49 | Outpatient (CLI) | payer OTHER, SELFPAY ==
--- NOTE | ~2023-06-23 | CT_ITS ---
EXAMINATION: CT diagnostic chest w con DATE: 06/23/2023 11:35 INDICATION: Pulmonary nodules TECHNIQUE: Computed tomography (CT) of the chest was performed without intravenous contrast. Addition al 3D reconstructions utilizing coronal maximum intensity projection (MIP) were performed. Automated exposure control and iterative reconstruction technique were employed. The dose-length product was 22 1.71 mGy-cm. COMPARISON: 12/11/2022 FINDINGS: No interval change in a 5 mm nodule in the right lower lobe or of a few additional 2-3 mm nodules, on e located at the superior segment of the right lower lobe, a couple in the right middle lobe and one in the anterior segment of the right upper lobe. Unchanged small calcified nodules in the left lower lobe consistent with old granulomatous disease. No new or enlarging pulmonary nodules identified. No pneumonia, pulmonary edema or pleural effusion. Heart size is normal. Thoracic aorta is normal in zonia iber with no dissection. No pathologically enlarged thoracic lymphadenopathy. Postoperative changes of prior cholecystectomy and sleeve gastrectomy. Mild to moderate thoracic spondylosis with chronic m ild anterior wedging of a few mid thoracic vertebral bodies. IMPRESSION: 1. No interval change in a few small likely benign pulmonary nodules, the largest measuring 5 mm in t he left lower lobe. Reviewed, dictated and finalized at location [facility]. IMPRESSION: 1. No interval change in a few small likely benign pulmonary nodules, the large st measuring 5 mm in the left lower lobe.
[2023-06-23 11:09] LABS: Estimated Glomerular Filt Rate 60
== END ==
PROVIDERS: PCP Internal Medicine; Visit Provider Clinical Nurse Specialist
DX: R91.8 Other nonspecific abnormal finding of lung field (principal)
CPT/HCPCS: 71260; Q9967

== ENCOUNTER 2023-06-29 17:00 | Outpatient (CLI) | payer OTHER, SELFPAY ==
--- NOTE | ~2023-06-29 | XR_ITS ---
Supine and upright views of the abdomen Clinical history: Constipation, bloating COMPARISON: 12/09/2022 Findings: Bowel gas pattern is nonspecific. Moderate stool burden noted. No evidence for obstruction or free air. No abnormal mass lesion or calcification is seen. Cholecystectomy clips present. Osseous structures are intact. Impression: Moderate stool burden. Reviewed, dictated and finalized at [facility]. Impression: Moderate stool burden.
== END 2023-06-29 17:01 | disposition home or self-care (01) ==
PROVIDERS: PCP Internal Medicine; Visit Provider Nurse Practitioner
DX: K58.1 Irritable bowel syndrome with constipation (principal); R14.0 Abdominal distension (gaseous)
CPT/HCPCS: 74018

== ENCOUNTER 2023-08-10 16:58 | Emergency (ER) | payer OTHER, SELFPAY | END 2023-08-10 17:00 | disposition left against medical advice (07) | PROVIDERS: PCP Internal Medicine | DX: Z53.21 Procedure and treatment not carried out due to patient leaving prior to being seen by health care provider (principal) | CPT/HCPCS: 99199 ==

== ENCOUNTER 2023-08-11 02:43 | Emergency (ER) | payer OTHER, SELFPAY ==
--- NOTE | ~2023-08-11 | XR_ITS ---
Portable chest x-ray Comparison: 03/31/2023 Clinical History: Cough, Covid Findings: Lungs are clear, without focal consolidation or pleural effusion. Cardiomediastinal silho uette is stable. Bones and soft tissues are unremarkable. Impression: Normal chest. Reviewed, dictated and finalized at location . Impression: Normal chest.
[2023-08-11 02:46] VITALS: BP 124/89; PULSE 87; RESP 15; TEMP 37.4; O2SAT 100
[2023-08-11 02:56] VITALS: BP 148/100; PULSE 85; PULSE 87; RESP 13; TEMP 37.2; O2SAT 100
[2023-08-11 02:57] VITALS: O2SAT 100
[2023-08-11] MEDS: IBUPROFEN 600 MG TABLET PO (03:21)
[2023-08-11] MEDS: ACETAMINOPHEN 325 MG TABLET 650 MG PO (03:21)
[2023-08-11] MEDS: BENZONATATE 100 MG CAPSULE PO (03:21)
--- NOTE | 2023-08-11 03:24 | ED.GENADULT ---
HPI - General Adult General Chief complaint: Unspecified Stated complaint: covid positive, fever, aches, weakness Time Seen by Provider: 08/11/23 02:50 History of Present Illness HPI narrative: Patient presents to the emergency department with flulike symptoms. Subjective fevers body aches and exhaustion. She had similar symptoms 3 weeks ago as her primary care started on Paxlovid without an official diagnosis of COVID. Then a few days ago her tested positive and her symptoms recurred. She is concerned that she is having a recurrence of COVID. She states her primary care doctor recommended she come to the emergency department due to her past medical problems. She says she has immune deficiencies including thyroiditis, pulmonary nodules and fibromyalgia. She was here earlier today but the wait was too long. She was also tried to be seen in urgent care but they recommended she come to the emergency department. Patient denies shortness of breath. Related Data Home Medications Medication Instructions Recorded Confirmed duloxetine 60 mg capsule,delayed 60 mg PO BID 10/05/19 06/28/23 release (Cymbalta) levothyroxine 100 mcg tablet 100 mcg PO DAILY 11/19/20 06/28/23 (Synthroid) rizatriptan 10 mg tablet See Rx Instructions PO .COMPLEX 12/02/21 06/28/23 atogepant 10 mg tablet (Qulipta) 60 mg PO DAILY 10/21/22 06/28/23 ustekinumab 45 mg/0.5 mL 45 mg subcut .COMPLEX 11/27/22 06/28/23 subcutaneous syringe (Stelara) zaleplon 5 mg capsule 5 - 10 mg PO HS PRN Insomnia 02/18/23 06/28/23 topiramate 50 mg tablet mg 04/15/23 06/28/23 Allergies Allergy/AdvReac Type Severity Reaction Status Date / Time hydroxychloroquine AdvReac Other Verified 06/28/23 15:06 Review of Systems Review of Systems: Review of systems negative except what is documented in the HPI [facility] Past Medical History Medical History Allergies Bloating Bronchitis Chicken pox Cholecystectomy planned 1998 Colon cancer screening Constipation Depression Fibromyalgia H/O Magdal[place] thyroiditis History of ITP Hot flashes Hypertension Ileus Irritable bowel syndrome with constipation Migraine Obesity Psoriatic arthritis Thyroid disease Yeast infection Surgical History Surgical History History of Mayur fundoplication 2016 History of partial hysterectomy 07/2015 Hx of laparoscopic gastric banding Family History Family History Grandparent Family history of malignant neoplasm of breast in first degree relative Cerebrovascular accident Father Depression Hypertension Anxiety Mother Hypertension Thyroid disease Social History Social History Smoking packs per day: 0.5 Smoking cigarettes per day: 10.0 Years smoked: 15 Smoking pack-years: 7.50 Smoking status: Current every day smoker Tobacco type: cigarettes Smoking end date: 11/22/08 Additional smoking assessment comments: Currently vaping Alcohol intake: current Drinks per week: 2 Alcohol use details: social Substance use: never Substance use type: does not use Lack of Transportation: No Lack of Food: Never True Current Housing: I Have Housing Concerned About Future Housing: No Difficulty Paying Gas/Electric Bills: No Difficulty Paying for Meds: No Currently Unemployed: No Education: Bachelor's Degree Difficulty w/ Childcare or Family Care: No Living arrangements: with family Spiritual care concerns: No Exam Narrative: GENERAL: Well-appearing, well-nourished, and in no acute distress. HEAD: Normocephalic, atraumatic. EYES: PERRLA and EOMI. ENT: Nares clear, no rhinorrhea or epistaxis. Mucous membranes moist. NECK: Supple. CHEST: Clear to auscultation. No respiratory distress. HEART: Regular
[2023-08-11 03:32] LABS: Basophils Percent Auto 0.5 % (0.2-1.2); Eosinophils Absolute Auto 0.2 K/mm3 (0-0.3); Eosinophils Percent Auto 3.9 % (0-4.4); Hematocrit 40.8 % (37.0-47.0); Hemoglobin 12.9 g/dL (12.0-15.0); Immature Granulocyte Absolute 0.01 K/mm3 (0.00-0.031); Immature Granulocyte Percent A 0.2 % (0-0.5); Lymphocytes Absolute Auto 1.79 K/mm3 (0.9-3.2); Lymphocytes Percent Auto 43.2 % (18.3-44.2); Mean Corpuscular HGB Conc 31.6 g/dl (32-36); Mean Corpuscular Hemoglobin 26.2 pg (26-34); Mean Corpuscular Volume 82.8 fl (80-100); Mean Platelet Volume 10.1 fl (7.4-10.4); Monocytes Absolute Auto 0.5 K/mm3 (0.1-0.6); Monocytes Percent Auto 12.3 % (2.6-8.5); Neutrophils Absolute Auto 1.7 K/mm3 (1.3-6.7); Neutrophils Percent Auto 39.9 % (45.5-73.1); Platelet Count Result 187 k/mm3 (150-375); Red Blood Count 4.93 M/mm3 (4.2-5.4); Red Cell Distribution Width 13.2 % (11.5-14.5); White Blood Count 4.1 K/mm3 (4.5-10.0)
[2023-08-11 03:38] LABS: Influenza A QL RT-PCR Negative (Negative); Influenza B QL RT-PCR Negative (Negative); RSV RNA, RT-PCR Negative (Negative); SARS-CoV-2 RNA PCR Positive (Negative)
[2023-08-11 03:43] LABS: Alanine Aminotransferase 19 U/L (6-35); Albumin Level 3.6 g/dL (3.5-5.1); Alkaline Phosphatase 55 U/L (38-126); Anion Gap 5 mmol/L (8-16); Aspartate Amino Transferase 27 U/L (14-36); Bilirubin,Total 0.4 mg/dL (0.2-1.3); Blood Urea Nitrogen 10 mg/dL (7-17); Calcium 8.3 mg/dL (8.4-10.2); Carbon Dioxide 25 mmol/L (22-30); Chloride 104 mmol/L (98-107); Estimated CRCL calculation 94 ml/min; Estimated Glomerular Filt Rate > 60; Glucose 91 mg/dL (65-110); Potassium 4.4 mmol/L (3.4-5.0); Sodium 134 mmol/L (137-145)
[2023-08-11 04:32] VITALS: BP 139/89; PULSE 79; RESP 16; TEMP 36.6; O2SAT 100
== END 2023-08-11 04:34 | disposition home or self-care (01) ==
PROVIDERS: Emergency Provider Emergency Medicine; PCP Internal Medicine
DX: U07.1 COVID-19 (principal); R53.1 Weakness; I10 Essential (primary) hypertension; K58.1 Irritable bowel syndrome with constipation; E06.3 Autoimmune thyroiditis; L40.50 Arthropathic psoriasis, unspecified; M79.7 Fibromyalgia; E66.9 Obesity, unspecified; Z68.31 Body mass index [BMI] 31.0-31.9, adult; F32.A Depression, unspecified; Z90.711 Acquired absence of uterus with remaining cervical stump; Z98.84 Bariatric surgery status; F17.290 Nicotine dependence, other tobacco product, uncomplicated
CPT/HCPCS: 36415; 71045; 80053; 85025; 87637; 99283; A9270

== ENCOUNTER 2023-09-16 10:24 | Day surgery (SDC) | payer OTHER, SELFPAY ==
[2023-09-06 11:17] VITALS: BMI 29.2
[2023-09-14 14:24] VITALS: BMI 29.3
[2023-09-16 11:10] VITALS: BP 136/98; PULSE 72; RESP 20; TEMP 37.7; O2SAT 100
--- NOTE | 2023-09-16 11:22 | WPDANESEPPF ---
Anes - Initial Pre Proc Eval Procedure: Operation Date: 09/16/23 14:30 Proposed Procedures p Esophagogastroduodenoscopy - Aryan Case MD Date/Time: 09/16/23 11:22 Surgeon: Aryan Case MD Pre Op Diagnosis: k21.9 GERD without esophagitis Patient Data Age: 43 Gender: F Height: 1.68 m Weight: 82.5 kg Allergies Allergy/AdvReac Type Severity Reaction Status Date / Time hydroxychloroquine AdvReac Other Verified 09/16/23 11:21 Home Medications Medication Instructions Recorded Confirmed Type duloxetine 60 mg capsule,delayed 60 mg PO BID 10/05/19 09/14/23 History release (Cymbalta) levothyroxine 100 mcg tablet 100 mcg PO DAILY 11/19/20 09/14/23 History (Synthroid) rizatriptan 10 mg tablet (Maxalt) See Rx Instructions PO .COMPLEX 12/02/21 09/14/23 History zaleplon 5 mg capsule 5 - 10 mg PO HS PRN Insomnia 02/18/23 09/14/23 History lisinopril 2.5 mg tablet See Rx Instructions .Route 03/02/23 09/14/23 Rx .COMPLEX #90 tabs pantoprazole 40 mg tablet,delayed 40 mg PO BID #180 tabs 05/26/23 09/14/23 Rx release linaclotide 290 mcg capsule 290 mcg PO QAM #90 caps 06/28/23 09/14/23 Rx (Linzess) buspirone 10 mg tablet 10 mg PO BID 08/27/23 09/14/23 History certolizumab pegol 400 mg/2 mL 400 mg subcut ONCE 08/27/23 09/14/23 History (200 mg/mL x2) subcutaneous syringe kit (Cimzia) rimegepant 75 mg disintegrating 75 mg PO ONCE PRN Muscle Spasm 09/02/23 09/14/23 History tablet (Nurtec ODT) terbinafine HCl 250 mg tablet 250 mg PO TID 09/14/23 09/14/23 History tizanidine 4 mg tablet (Zanaflex) 4 mg PO .QD PRN muscle spasticity 09/14/23 09/14/23 History Patient hx anesthesia problems: none Family hx anesthesia problems: none Results Review: All pre-operative results and documents have been reviewed as part of the pre-operative evaluation. [facility] Past Medical History Medical History Allergies Karimi esophagus Bloating Bronchitis Chicken pox Cholecystectomy planned 1998 Colon cancer screening Constipation Depression Fibromyalgia GERD (gastroesophageal reflux disease) H/O Magdal[place] thyroiditis History of ITP Hot flashes Hypertension Ileus Irritable bowel syndrome with constipation Migraine Obesity Psoriatic arthritis Thyroid disease Yeast infection Surgical History Surgical History History of Mayur fundoplication 2016 History of partial hysterectomy 07/2015 Hx of laparoscopic gastric banding Family History Family History Grandparent Family history of malignant neoplasm of breast in first degree relative Cerebrovascular accident Father Depression Hypertension Anxiety Mother Hypertension Thyroid disease Social History Social History (Updated 09/16/23 @ 11:23 by Oren Carpenter MD) Smoking packs per day: 0.5 Smoking cigarettes per day: 10.0 Years smoked: 15 Smoking pack-years: 7.50 Smoking status: Former smoker Tobacco type: cigarettes Smoking end date: 11/22/08 Additional smoking assessment comments: Currently vaping Alcohol intake: current Drinks per week: 2 Alcohol use details: socially Substance use: never Substance use type: does not use Lack of Transportation: No Lack of Food: Never True Current Housing: I Have Housing Concerned About Future Housing: No Difficulty Paying Gas/Electric Bills: No Difficulty Paying for Meds: No Currently Unemployed: No Education: Bachelor's Degree Difficulty w/ Childcare or Family Care: No Living arrangements: with family Spiritual care concerns: No Anes - Eval Final PreProcedure Day of Procedure 09/16/23 11:22 Patient weight: overweight Heart: regular rate and rhythm Lungs: clear to auscultation Airway: Mallampati scale class II Neurological: alert and oriented Last
[2023-09-16] MEDS: LACTATED RINGERS 1,000 ML 150 ML IV CONT (11:25)
--- NOTE | 2023-09-16 11:34 | WPDHPUPDATE1 ---
History and Physical Update Update Date/Time: 09/16/23 11:34 History and Physical has been reviewed, including an updated exam of the patient. There are NO changes in the patient's condition. Risks, benefits, and alternatives have been discussed and questions answered. Patient agrees to proceed with procedure.
[2023-09-16 11:42] VITALS: BP 124/80; PULSE 80; RESP 20; O2SAT 100
[2023-09-16 11:52] VITALS: BP 123/78; PULSE 80; RESP 16; O2SAT 100
[2023-09-16 12:02] VITALS: BP 122/82; PULSE 78; RESP 18; O2SAT 100
== END 2023-09-16 12:15 | disposition home or self-care (01) ==
PROVIDERS: PCP Internal Medicine; Visit Provider Internal Medicine Gastroenterology
PROC: 0DJ08ZZ Inspection of Upper Intestinal Tract, Via Natural or Artificial Opening Endoscopic (ICD-10-PCS; CPT 43235; principal; 2023-09-16 14:30)
DX: K29.70 Gastritis, unspecified, without bleeding (principal); K44.9 Diaphragmatic hernia without obstruction or gangrene; R14.0 Abdominal distension (gaseous)
CPT/HCPCS: 43239

== ENCOUNTER 2023-09-16 11:55 | Outpatient (NON) | payer OTHER, SELFPAY | END 2023-09-16 11:56 | disposition home or self-care (01) | LOC: ANHLAB 09-17 11:56 | PROVIDERS: PCP Internal Medicine; Visit Provider Internal Medicine Gastroenterology | DX: K21.00 Gastro-esophageal reflux disease with esophagitis, without bleeding (principal); R11.0 Nausea | CPT/HCPCS: 88305 ==

== ENCOUNTER 2023-12-02 16:32 | Emergency (ER) | payer SELFPAY ==
--- NOTE | 2023-12-02 16:33 | PC.NURSE ---
FUCK THE WAIT IS TOO LONG!' WHAT OTHER HOSPITALS ARE AROUND HERE? PT DECIDED WAIT WAS TOO LONG AND SHE AMBULATED FROM THE ED WITH A STEADY GAIT.
== END 2023-12-02 16:33 | disposition left against medical advice (07) ==
PROVIDERS: PCP Internal Medicine
DX: Z53.21 Procedure and treatment not carried out due to patient leaving prior to being seen by health care provider (principal)
CPT/HCPCS: 99199

== ENCOUNTER 2024-02-18 10:38 | Emergency (ER) | payer OTHER, SELFPAY ==
[2024-02-18 10:53] VITALS: BP 134/98; PULSE 79; RESP 16; TEMP 37.2; O2SAT 99
--- NOTE | 2024-02-18 11:00 | ED.URI ---
HPI - URI/Sore Throat General Chief Complaint: Upper Respiratory Infection Stated Complaint: [place],fatigue,sweats,fever Time Seen by Provider: 02/18/24 10:58 Source: patient, RN notes reviewed and old records reviewed Mode of arrival: ambulatory Limitations: no limitations History of Present Illness HPI Narrative: 43-year-old female to [facility] with complaint of exhaustion, chills, headache for 3 days. Patient denies sore throat, fever, cough. Patient has not attempted to treat at home with [id number] medications. patient nausea, vomiting diarrhea. Patient able to tolerate fluids by mouth. Related Data Home Medications Medication Instructions Recorded Confirmed duloxetine 60 mg capsule,delayed 60 mg PO BID 10/05/19 02/18/24 release (Cymbalta) levothyroxine 100 mcg tablet 100 mcg PO DAILY 11/19/20 02/18/24 (Synthroid) zaleplon 5 mg capsule 5 - 10 mg PO HS PRN Insomnia 02/18/23 02/18/24 buspirone 10 mg tablet 10 mg PO BID 08/27/23 02/18/24 certolizumab pegol 400 mg/2 mL 400 mg subcut ONCE 08/27/23 02/18/24 (200 mg/mL x2) subcutaneous syringe kit (Cimzia) atogepant 60 mg tablet (Qulipta) 60 mg PO DAILY 12/07/23 02/18/24 ubrogepant 100 mg tablet (Ubrelvy) 100 mg PO ONCE PRN Headache 12/07/23 02/18/24 estradiol 0.01% (0.1 mg/gram) 0.01 appful vaginal 2XW 02/18/24 02/18/24 vaginal cream estradiol 0.05 mg/24 hr semiweekly 0.05 patch topical 2XW 02/18/24 02/18/24 transdermal patch Allergies Allergy/AdvReac Type Severity Reaction Status Date / Time hydroxychloroquine AdvReac Other Verified 02/18/24 10:46 Review of Systems Review of Systems: All systems reviewed & are unremarkable except as noted in HPI and below Constitutional: Constitutional: Reports as per HPI, Reports chills, Reports fatigue, Denies fever(s) and Reports headache(s) Eyes: Eyes: Reports no additional eye complaints ENT: Reports system reviewed and no additional complaints, except as documented Cardiovascular: Cardiovascular: Reports no additional cardiovascular complaints, Denies chest pain and Denies dyspnea Respiratory: Respiratory: Reports no additional respiratory complaints, Denies cough and Denies dyspnea Musculoskeletal: Musculoskeletal: Reports no additional musculoskeletal complaints Neurologic: Reports system reviewed and no additional complaints, except as documented Psychiatric: Psychiatric: Reports no additional psychiatric complaints [facility] Past Medical History Medical History Allergies Karimi esophagus Bloating Bronchitis Chicken pox Cholecystectomy planned 1998 Colon cancer screening Constipation Depression Fibromyalgia GERD (gastroesophageal reflux disease) H/O [place] thyroiditis History of ITP Hot flashes Hypertension Ileus Irritable bowel syndrome with constipation Migraine Obesity Psoriatic arthritis Thyroid disease Yeast infection Surgical History Surgical History History of Mayur fundoplication 2016 History of partial hysterectomy 07/2015 Hx of laparoscopic gastric banding Family History Family History Grandparent Family history of malignant neoplasm of breast in first degree relative Cerebrovascular accident Father Depression Hypertension Anxiety Mother Hypertension Thyroid disease Social History Social History Smoking packs per day: 0.5 Smoking cigarettes per day: 10.0 Years smoked: 15 Smoking pack-years: 7.50 Smoking status: Former smoker Tobacco type: cigarettes Smoking end date: 11/22/08 Additional smoking assessment comments: Currently vaping Alcohol intake: current Drinks per week: 2 Alcohol use details: socially Substance use: never Substance use type: does not use Lack of Transportat
== END 2024-02-18 11:25 | disposition home or self-care (01) ==
PROVIDERS: Emergency Provider Nurse Practitioner Family
DX: J06.9 Acute upper respiratory infection, unspecified (principal); Z20.822 Contact with and (suspected) exposure to COVID-19; F17.290 Nicotine dependence, other tobacco product, uncomplicated; K22.70 Barrett's esophagus without dysplasia; M79.7 Fibromyalgia; K21.9 Gastro-esophageal reflux disease without esophagitis; E06.3 Autoimmune thyroiditis; I10 Essential (primary) hypertension; E66.9 Obesity, unspecified; Z68.29 Body mass index [BMI] 29.0-29.9, adult; L40.50 Arthropathic psoriasis, unspecified; Z90.711 Acquired absence of uterus with remaining cervical stump; F32.A Depression, unspecified
CPT/HCPCS: 87426; 87804; 99213; G0463

== ENCOUNTER 2024-03-27 13:36 | Emergency (ER) | payer OTHER, SELFPAY ==
[2024-03-27 13:46] VITALS: BP 124/102; PULSE 90; RESP 16; TEMP 36.6; O2SAT 100
--- NOTE | 2024-03-27 13:56 | ED.GENADULT ---
HPI - General Adult General Chief complaint: Dizziness Stated complaint: Dizziness Time Seen by Provider: 03/27/24 14:14 Source: patient, RN notes reviewed and old records reviewed Mode of arrival: ambulatory Limitations: no limitations History of Present Illness HPI narrative: 43-year-old female presents to [facility] with complaints of dizziness fatigue and intermittent sweating since Wednesday, 2 days. States that she tried taking her meclizine and it makes her sleepy so she goes back to bed. Unsure if it actually helped. States she does not know she has been running a fever but she has been sweating a lot. Denies any blurry vision or change in vision. Walks with a normal gait. Denies any headaches. States that it feels like she is spinning. Has a history of vertigo Patient also concerned that she had a tick imbedded to the right clavicle area on Wednesday 8 days ago concerned that the symptoms are related to the tick bite. Patient states that she called her primary care provider who referred her to the urgent care. Patient thought that we can do blood work and IV fluids. Discussed with patient that we are not able to, offered to refer to the ER or treat prophylactically for the tick bite and give her more meclizine. Patient would prefer to try the meclizine and a prophylactic treatment for the tick bite Patient is declining ER transfer at this time Related Data Home Medications Medication Instructions Recorded Confirmed duloxetine 60 mg capsule,delayed 60 mg PO BID 10/05/19 03/27/24 release (Cymbalta) levothyroxine 100 mcg tablet 100 mcg PO DAILY 11/19/20 03/27/24 (Synthroid) zaleplon 5 mg capsule 5 - 10 mg PO HS PRN Insomnia 02/18/23 03/27/24 buspirone 10 mg tablet 10 mg PO BID 08/27/23 03/27/24 certolizumab pegol 400 mg/2 mL 400 mg subcut ONCE 08/27/23 03/27/24 (200 mg/mL x2) subcutaneous syringe kit (Cimzia) atogepant 60 mg tablet (Qulipta) 60 mg PO DAILY 12/07/23 03/27/24 ubrogepant 100 mg tablet (Ubrelvy) 100 mg PO ONCE PRN Headache 12/07/23 03/27/24 estradiol 0.01% (0.1 mg/gram) 0.01 appful vaginal 2XW 02/18/24 03/27/24 vaginal cream estradiol 0.05 mg/24 hr semiweekly 0.05 patch topical 2XW 02/18/24 03/27/24 transdermal patch Allergies Allergy/AdvReac Type Severity Reaction Status Date / Time hydroxychloroquine AdvReac Other Verified 02/25/24 08:13 Review of Systems Review of Systems: All systems reviewed & are unremarkable except as noted in HPI and below Constitutional: Constitutional: Reports no additional constitutional complaints Eyes: Eyes: Reports no additional eye complaints ENT: Reports system reviewed and no additional complaints, except as documented Cardiovascular: Cardiovascular: Reports no additional cardiovascular complaints, Denies chest pain and Denies dyspnea Respiratory: Respiratory: Reports no additional respiratory complaints, Denies chest congestion, Denies cough and Denies dyspnea Gastrointestinal: Gastrointestinal: Reports no additional gastrointestinal complaints, Denies abdominal pain, Denies nausea and Denies vomiting Musculoskeletal: Musculoskeletal: Reports no additional musculoskeletal complaints Integumentary/Breasts: Skin/Breast: Reports system reviewed and no additional complaints, except as docu Neurologic: Reports as per HPI, Reports dizziness, Denies syncope, Denies headache(s), Denies lack of coordination, Denies focal weakness, Denies loss of vision, Denies numbness and Denies Other visual disturbances Psychiatric: Psychiatric: Reports no additional psychiatric complaints Allergic/Immunologic: Allergic/Immunologic: Reports no additional allergic/immunologic complaints [facility] Past Medical History Medical History Allergies Karimi esophagus Bloating Bronchitis Chicken pox Cholecystectomy planned 1998 Colon cancer screening Constipation Depression Fibromyalgia GERD (gastroesophageal ref
[2024-03-27 14:01] VITALS: BP 141/96; PULSE 69
[2024-03-27 14:02] VITALS: BP 141/103; PULSE 81
[2024-03-27 14:03] VITALS: BP 146/106; PULSE 92
== END 2024-03-27 14:42 | disposition home or self-care (01) ==
PROVIDERS: Emergency Provider Nurse Practitioner; PCP Internal Medicine
DX: R42 Dizziness and giddiness (principal); S40.261A Insect bite (nonvenomous) of right shoulder, initial encounter; W57.XXXA Bitten or stung by nonvenomous insect and other nonvenomous arthropods, initial encounter; F32.A Depression, unspecified; I10 Essential (primary) hypertension; E07.9 Disorder of thyroid, unspecified; Z87.891 Personal history of nicotine dependence
CPT/HCPCS: 99213; G0463

== ENCOUNTER 2024-05-01 10:37 | Outpatient (CLI) | payer OTHER, SELFPAY ==
[2024-05-01 14:58] LABS: Basophils Absolute Auto 0.1 K/mm3 (0.0-0.1); Basophils Percent Auto 1.1 % (0.2-1.2); Eosinophils Absolute Auto 0.4 K/mm3 (0-0.3); Eosinophils Percent Auto 6.3 % (0-4.4); Hematocrit 43.6 % (37.0-47.0); Hemoglobin 13.4 g/dL (12.0-15.0); Immature Granulocyte Absolute 0.01 K/mm3 (0.00-0.031); Immature Granulocyte Percent A 0.2 % (0-0.5); Mean Corpuscular HGB Conc 30.7 g/dl (32-36); Mean Corpuscular Hemoglobin 25.5 pg (26-34); Mean Platelet Volume 10.4 fl (7.4-10.4); Monocytes Absolute Auto 0.5 K/mm3 (0.1-0.6); Monocytes Percent Auto 8.1 % (2.6-8.5); Neutrophils Absolute Auto 2.7 K/mm3 (1.3-6.7); Neutrophils Percent Auto 48.3 % (45.5-73.1); Platelet Count Result 298 k/mm3 (150-375); Red Blood Count 5.25 M/mm3 (4.2-5.4); Red Cell Distribution Width 12.9 % (11.5-14.5); White Blood Count 5.6 K/mm3 (4.5-10.0)
[2024-05-01 17:37] LABS: Alanine Aminotransferase 16 U/L (6-35); Albumin Level 4.1 g/dL (3.5-5.1); Alkaline Phosphatase 81 U/L (38-126); Anion Gap 4 mmol/L (4-12); Aspartate Amino Transferase 48 U/L (14-36); Bilirubin,Total 0.5 mg/dL (0.2-1.3); Blood Urea Nitrogen 9 mg/dL (7-17); Carbon Dioxide 27 mmol/L (22-30); Chloride 103 mmol/L (98-107); Estimated Glomerular Filt Rate > 60; Glucose 83 mg/dL (65-110); Potassium 4.1 mmol/L (3.4-5.0); Sodium 134 mmol/L (137-145)
[2024-05-01 18:03] LABS: Thyroid Stimulating Hormone 0.974 uIU/mL (0.465-4.680)
== END 2024-05-01 10:38 | disposition home or self-care (01) ==
LOC: ANHGOSHLAB 10:39
PROVIDERS: PCP Internal Medicine; Visit Provider Clinical Nurse Specialist
DX: E07.9 Disorder of thyroid, unspecified (principal); R10.9 Unspecified abdominal pain
CPT/HCPCS: 36415; 80053; 84443; 85025

== ENCOUNTER 2024-05-02 15:14 | Outpatient (CLI) | payer OTHER, SELFPAY ==
--- NOTE | ~2024-05-02 | US_ITS ---
Pelvic ultrasound. Clinical History: Pelvic pain Technique: Realtime transabdominal and transvaginal scanning of the pelvis was performed. Color flow Doppler and Doppler spectral analysis were performed. Findings: The uterus is absent, compatible prior hysterectomy. The right ovary measures 2.8 x 2.0 x 2.8 cm. Simple right ovarian cyst measures 2.2 cm in diameter. The left ovary measures 3.6 x 1.8 x 1.7 cm. Small simple follicular left ovarian cysts are present. There is no evidence of free fluid in the cul de sac. Impression: Status post hysterectomy. Small ovarian cysts, as above. Reviewed, dictated and finalized at location M. Impression: Status post hysterectomy. Small ovarian cysts, as above.
== END 2024-05-02 15:15 ==
LOC: MICIMG 15:15
PROVIDERS: PCP Clinical Nurse Specialist; Visit Provider Clinical Nurse Specialist
DX: R10.2 Pelvic and perineal pain (principal); Z90.711 Acquired absence of uterus with remaining cervical stump; N83.209 Unspecified ovarian cyst, unspecified side
CPT/HCPCS: 76830; 76856

== ENCOUNTER 2024-05-09 12:58 | Outpatient (CLI) | payer OTHER, SELFPAY ==
--- NOTE | ~2024-05-09 | CT_ITS ---
EXAMINATION: CT abdomen pelvis wo/w con DATE: 05/09/2024 13:41 INDICATION: Unspecified abdominal pain. Kidney stones. TECHNIQUE: Computed tomography (CT) of the abdomen and pelvis was performed without and with intraven ous contrast using a total of 130 mL Omnipaque-350 intravenous contrast with a double-bolus technique for simultaneous opacification of the renal parenchyma and renal collecting system. Automated exposu re control and iterative reconstruction technique were employed. The dose-length product was 1478.74 mGy-cm. COMPARISON: CT abdomen and pelvis 04/27/2023 FINDINGS: The visualized portions of the lung bases demonstrate mild atelectasis. No pleural effusion. The hear t size is normal. No pericardial effusion. The liver is normal. There are changes of cholecystectomy. There are surgical changes of the stomach. The spleen, pancreas, adrenal glands, and kidneys are nor mal. There is a 2 mm stone in distal right ureter. There are no dilated loops of bowel. There are no pathologically enlarged lymph nodes. There is no free intraperitoneal fluid. There is mild lumbar spi ne spondylosis and moderate thoracic spondylosis. IMPRESSION: 1. 2 mm stone in distal right ureter. No hydronephrosis. Reviewed, dictated and finalized at location [facility].
[2024-05-09 13:20] LABS: Estimated Glomerular Filt Rate > 60
== END 2024-05-09 12:59 ==
PROVIDERS: PCP Clinical Nurse Specialist; Visit Provider Clinical Nurse Specialist
DX: N20.1 Calculus of ureter (principal); K58.1 Irritable bowel syndrome with constipation; R19.8 Other specified symptoms and signs involving the digestive system and abdomen; R82.998 Other abnormal findings in urine
CPT/HCPCS: 74178; Q9967

== ENCOUNTER 2024-05-22 16:43 | Emergency (ER) | payer OTHER, SELFPAY ==
[2024-05-22 16:48] VITALS: BP 140/93; PULSE 81; RESP 16; TEMP 36.7; O2SAT 100
--- NOTE | 2024-05-22 17:01 | ED.GENADULT ---
HPI - General Adult General Chief complaint: Upper Respiratory Infection Stated complaint: cough/chest tight Time Seen by Provider: 05/22/24 17:01 Source: patient, RN notes reviewed and old records reviewed Mode of arrival: ambulatory Limitations: no limitations History of Present Illness HPI narrative: 43-year-old female to [facility] for complaint of cough, low-grade fever, sweats, fatigue for 5 days. Patient states that cough now feels like it is in her chest. Patient states no fever past 3 days. Has attempted treat at home DayQuil without relief. Patient denies sore throat, difficulty swallowing, shortness of breath, chest pain, headache, GI complaints. Patient able to tolerate fluids by mouth. Respirations even and nonlabored. Patient able to speak in full sentences, is coughing often in exam room. Patient in no acute distress. Related Data Home Medications Medication Instructions Recorded Confirmed duloxetine 60 mg capsule,delayed 60 mg PO BID 10/05/19 05/01/24 release (Cymbalta) levothyroxine 100 mcg tablet 100 mcg PO DAILY 11/19/20 05/01/24 (Synthroid) zaleplon 5 mg capsule 5 - 10 mg PO HS PRN Insomnia 02/18/23 05/01/24 buspirone 10 mg tablet 10 mg PO BID 08/27/23 05/01/24 certolizumab pegol 400 mg/2 mL 400 mg subcut ONCE 08/27/23 05/01/24 (200 mg/mL x2) subcutaneous syringe kit (Cimzia) atogepant 60 mg tablet (Qulipta) 60 mg PO DAILY 12/07/23 05/01/24 ubrogepant 100 mg tablet (Ubrelvy) 100 mg PO ONCE PRN Headache 12/07/23 05/01/24 estradiol 0.01% (0.1 mg/gram) 0.01 appful vaginal 2XW 02/18/24 05/01/24 vaginal cream estradiol 0.05 mg/24 hr semiweekly 0.05 patch topical 2XW 02/18/24 05/01/24 transdermal patch Allergies Allergy/AdvReac Type Severity Reaction Status Date / Time hydroxychloroquine AdvReac Other Verified 05/01/24 10:09 Review of Systems Review of Systems: All systems reviewed & are unremarkable except as noted in HPI and below Constitutional: Constitutional: Reports as per HPI, Reports excessive sweating, Reports fatigue and Reports fever(s) Eyes: Eyes: Reports no additional eye complaints ENT: Reports system reviewed and no additional complaints, except as documented Cardiovascular: Cardiovascular: Reports no additional cardiovascular complaints, Denies chest pain and Denies dyspnea Respiratory: Respiratory: Reports as per HPI, Reports cough and Denies dyspnea Musculoskeletal: Musculoskeletal: Reports no additional musculoskeletal complaints Neurologic: Reports system reviewed and no additional complaints, except as documented Psychiatric: Psychiatric: Reports no additional psychiatric complaints [facility] Past Medical History Medical History Allergies Karimi esophagus Bloating Bronchitis Chicken pox Cholecystectomy planned 1998 Colon cancer screening Constipation Depression Fibromyalgia GERD (gastroesophageal reflux disease) H/O [place] thyroiditis History of ITP Hot flashes Hypertension Ileus Irritable bowel syndrome with constipation Migraine Obesity Psoriatic arthritis Thyroid disease Yeast infection Surgical History Surgical History History of Mayur fundoplication 2016 History of partial hysterectomy 07/2015 Hx of laparoscopic gastric banding Family History Family History Grandparent Family history of malignant neoplasm of breast in first degree relative Cerebrovascular accident Father Depression Hypertension Anxiety Mother Hypertension Thyroid disease Social History Social History Smoking packs per day: 0.5 Smoking cigarettes per day: 10.0 Years smoked: 15 Smoking pack-years: 7.50 Smoking status: Former smoker Tobacco type: cigarettes Smoking end date: 11/22/08 Addit
== END 2024-05-22 17:37 | disposition home or self-care (01) ==
PROVIDERS: Emergency Provider Nurse Practitioner Family; PCP Internal Medicine
DX: R05.9 Cough, unspecified (principal); F17.290 Nicotine dependence, other tobacco product, uncomplicated; K22.70 Barrett's esophagus without dysplasia; M79.7 Fibromyalgia; K21.9 Gastro-esophageal reflux disease without esophagitis; E06.3 Autoimmune thyroiditis; I10 Essential (primary) hypertension; E66.9 Obesity, unspecified; Z90.711 Acquired absence of uterus with remaining cervical stump; F32.A Depression, unspecified
CPT/HCPCS: 99213; G0463

== ENCOUNTER 2024-05-26 13:07 | Emergency (ER) | payer OTHER, SELFPAY ==
--- NOTE | ~2024-05-26 | XR_ITS ---
XR chest 2V Ordering provider: Karl Martínez APRN History: 43 years Female with . cough, chest discomfort . Comparison: August 11, 2023 FINDINGS: MEDIASTINUM: The cardiac silhouette is not enlarged. LUNGS: No infiltrates, effusions or pneumothorax. OTHER: No free air under the diaphragm. IMPRESSION: No acute cardiopulmonary pathology. Reviewed, dictated and finalized at location A.
[2024-05-26 13:34] VITALS: BP 153/98; PULSE 82; RESP 16; TEMP 36.6; O2SAT 98
[2024-05-26 14:17] LABS: Strep Group A RT-PCR NOT DETECTED (Negative)
[2024-05-26 14:27] LABS: Influenza A QL RT-PCR Negative (Negative); Influenza B QL RT-PCR Negative (Negative); RSV RNA, RT-PCR Negative (Negative); SARS-CoV-2 RNA PCR Negative (Negative)
--- NOTE | 2024-05-26 14:28 | ED.GENADULT ---
HPI - General Adult General Chief complaint: Unspecified <Karl Martínez APRN - Last Filed: 05/26/24 14:36> Stated complaint: cough, decreased appetite, sweating <Karl Martínez APRN - Last Filed: 05/26/24 14:36> Time Seen by Provider: 05/26/24 14:30 <Karl Martínez APRN - Last Filed: 05/26/24 14:36> Focused HPI: Ella is a 43-year-old female patient presenting to the clinic today with complaints cough, decreased appetite, fever, chills, and sweats times x8 days. She reports she was seen in the [facility] last week and was given prescription for amoxicillin. States she does not know why she is taking the amoxicillin as they did not do any testing on her at that time. General: Well-developed, well nourished, in no apparent distress Head: Normocephalic, atraumatic Eyes: Pupils equally round and reactive to light bilaterally, EOM intact, sclera and conjunctive clear, no discharge, lids normal Ears: TMs intact and slightly congested, ear canals clear, no drainage, grossly hearing normal. Nose: Nares patent, clear discharge, no inflammation, no sinus tenderness. Mouth: Oropharynx without lesions or masses, good dentition, MMM. Neck: Supple, trachea midline, no enlargement of anterior or posterior cervical nodes, no thyroid masses or goiter palpable. Cardio: Regular rate and rhythm, s1 and s2 normal, no murmur appreciated. Resp: Clear to auscultation bilaterally anteriorly and posteriorly, no rhonchi, rales, wheezing or rubs Patient screened in triage and initial orders placed. Additional care and disposition to be based upon diagnostic testing and treatment. <Karl Martínez APRN - Last Filed: 05/26/24 14:36> Source: patient <Karl Martínez APRN - Last Filed: 05/26/24 14:36> Mode of arrival: ambulatory <Karl Martínez APRN - Last Filed: 05/26/24 14:36> Limitations: no limitations <Karl Martínez APRN - Last Filed: 05/26/24 14:36> History of Present Illness HPI narrative: Patient 53-year-old female presents emergency department with chief complaint of fever chills body aches for the last week and hand. The patient was seen at [facility] Care started on amoxicillin on reports they gave her a yeast infection patient reports of that her symptoms have not improved reports that her was sick but has resolved from his symptoms. The patient does report that she has history of psoriatic arthritis <Glenn Dowell MD - Last Filed: 05/26/24 16:27> Related Data Home medications: Home Medications Medication Instructions Recorded Confirmed duloxetine 60 mg capsule,delayed 60 mg PO BID 10/05/19 05/01/24 release (Cymbalta) levothyroxine 100 mcg tablet 100 mcg PO DAILY 11/19/20 05/01/24 (Synthroid) zaleplon 5 mg capsule 5 - 10 mg PO HS PRN Insomnia 02/18/23 05/01/24 buspirone 10 mg tablet 10 mg PO BID 08/27/23 05/01/24 certolizumab pegol 400 mg/2 mL 400 mg subcut ONCE 08/27/23 05/01/24 (200 mg/mL x2) subcutaneous syringe kit (Cimzia) atogepant 60 mg tablet (Qulipta) 60 mg PO DAILY 12/07/23 05/01/24 ubrogepant 100 mg tablet (Ubrelvy) 100 mg PO ONCE PRN Headache 12/07/23 05/01/24 estradiol 0.01% (0.1 mg/gram) 0.01 appful vaginal 2XW 02/18/24 05/01/24 vaginal cream estradiol 0.05 mg/24 hr semiweekly 0.05 patch topical 2XW 02/18/24 05/01/24 transdermal patch <Karl Martínez APRN - Last Filed: 05/26/24 14:36> Allergies/adverse reactions: Allergies Allergy/AdvReac Type Severity Reaction Status Date / Time hydroxychloroquine AdvReac Other Verified 05/01/24 10:09 <Karl Martínez APRN - Last Filed: 05/26/24 14:36> Review of Systems Review of Systems: A 10 system review of systems was completed on the patient and is negative except for what is stated in the HPI. Nursing and ancillary documentation was reviewed. <Glenn Dowell MD - Last Filed: 05/26/24 16:27> [facility]
[2024-05-26 14:45] VITALS: RESP 16
[2024-05-26 15:00] LABS: Basophils Percent Auto 0.5 % (0.2-1.2); Eosinophils Absolute Auto 0.2 K/mm3 (0-0.3); Eosinophils Percent Auto 2.7 % (0-4.4); Hematocrit 46.2 % (37.0-47.0); Hemoglobin 14.1 g/dL (12.0-15.0); Immature Granulocyte Absolute 0.03 K/mm3 (0.00-0.031); Immature Granulocyte Percent A 0.5 % (0-0.5); Lymphocytes Absolute Auto 1.87 K/mm3 (0.9-3.2); Lymphocytes Percent Auto 29.2 % (18.3-44.2); Mean Corpuscular HGB Conc 30.5 g/dl (32-36); Mean Corpuscular Hemoglobin 25.5 pg (26-34); Mean Corpuscular Volume 83.5 fl (80-100); Mean Platelet Volume 10.8 fl (7.4-10.4); Monocytes Absolute Auto 0.4 K/mm3 (0.1-0.6); Monocytes Percent Auto 6.9 % (2.6-8.5); Neutrophils Absolute Auto 3.9 K/mm3 (1.3-6.7); Neutrophils Percent Auto 60.2 % (45.5-73.1); Platelet Count Result 235 k/mm3 (150-375); Red Blood Count 5.53 M/mm3 (4.2-5.4); White Blood Count 6.4 K/mm3 (4.5-10.0)
[2024-05-26 15:17] LABS: Alanine Aminotransferase 69 U/L (6-35); Albumin Level 4.5 g/dL (3.5-5.1); Alkaline Phosphatase 74 U/L (38-126); Anion Gap 7 mmol/L (4-12); Aspartate Amino Transferase 57 U/L (14-36); Bilirubin,Total 0.8 mg/dL (0.2-1.3); Blood Urea Nitrogen 6 mg/dL (7-17); Carbon Dioxide 27 mmol/L (22-30); Chloride 102 mmol/L (98-107); Estimated CRCL calculation 94 ml/min; Estimated Glomerular Filt Rate > 60; Glucose 122 mg/dL (65-110); Potassium 3.9 mmol/L (3.4-5.0); Sodium 136 mmol/L (137-145)
--- NOTE | 2024-05-26 15:23 | PC.NURSE ---
Pt states I've been sick for a week Reports cough, fatigue, body aches. Fever broke 5 days ago
[2024-05-26 15:27] LABS: Appearance Urine Clear (Clear); Bacteria Urine None Seen /hpf; Bilirubin Urine Negative (Negative); Blood Urine Negative (Negative); Color Urine Yellow (Yellow); Glucose Urine UA Negative (Negative); Ketones Urine Negative (Negative); Leukocyte Esterase Ur Trace LEU/UL (Negative); Nitrate Urine Negative (Negative); Non Pathogenic Casts 0-2; Protein Urine Negative (Negative); RBC Urine 0-2 /hpf (0-2); Specific Grav Ur 1.007 (1.001-1.035); Squamous Epithelial Cell Urine Few /hpf (Few); Urobilinogen Urine 0.2 mg/dL (<2.0); WBC Urine 0-5 /hpf (0-3)
[2024-05-26 15:29] LABS: Add Urine Microscopic? YES
[2024-05-26] MEDS: BENZONATATE 100 MG CAPSULE 200 MG PO (15:32)
[2024-05-26] MEDS: dexAMETHasone SOD PHOS INJ 10 MG/ML 1 ML VIAL IM (15:32)
--- NOTE | 2024-05-26 16:28 | PC.NURSE ---
RN went to discharge pt. Pt not in room or in waiting room. Dr. Powers informed
== END 2024-05-26 15:59 | disposition home or self-care (01) ==
PROVIDERS: Nurse Practitioner Family; Emergency Provider Emergency Medicine; PCP Internal Medicine
DX: J06.9 Acute upper respiratory infection, unspecified (principal); Z20.822 Contact with and (suspected) exposure to COVID-19; I10 Essential (primary) hypertension; E06.3 Autoimmune thyroiditis; E66.9 Obesity, unspecified; Z68.29 Body mass index [BMI] 29.0-29.9, adult; K22.70 Barrett's esophagus without dysplasia; K21.9 Gastro-esophageal reflux disease without esophagitis; K58.1 Irritable bowel syndrome with constipation; M79.7 Fibromyalgia; L40.50 Arthropathic psoriasis, unspecified; F17.290 Nicotine dependence, other tobacco product, uncomplicated; Z79.899 Other long term (current) drug therapy
CPT/HCPCS: 36415; 71046; 80053; 81001; 85025; 87637; 87651; 96372; 99283; A9270; J1100

== ENCOUNTER 2024-07-04 13:13 | Outpatient (CLI) | payer OTHER, SELFPAY ==
--- NOTE | ~2024-07-04 | CT_ITS ---
EXAMINATION:CT diagnostic chest w con DATE: 07/04/2024 13:45 INDICATION: Solitary pulmonary nodule. TECHNIQUE: Computed tomography (CT) of the chest was performed with 75 mL Omnipaque 350 intravenous c ontrast. Automated exposure control and iterative reconstruction technique were employed. The dose-le ngth product (DLP) was 170.97 mGy-cm. COMPARISON: Chest CT 06/23/2023 FINDINGS: The lungs demonstrate mild atelectasis. There is a 3 mm nodule in right lower lobe, likely benign. No pleural effusion. The heart size is normal. No pericardial effusion. There are changes of cholecystectomy. There are surgical changes of the stomach. There is moderate thoracic spondylosis. T here is mild chronic anterior wedging of multiple vertebral bodies. IMPRESSION: 1. Stable small pulmonary nodule, likely benign. Reviewed, dictated and finalized at location A.
[2024-07-04 13:33] LABS: Estimated Glomerular Filt Rate 60
== END 2024-07-04 13:14 ==
LOC: MICIMG 13:13
PROVIDERS: PCP Clinical Nurse Specialist; Visit Provider Clinical Nurse Specialist
DX: R91.1 Solitary pulmonary nodule (principal)
CPT/HCPCS: 71260; Q9967

== ENCOUNTER 2024-07-04 13:14 | Outpatient (CLI) | payer OTHER, SELFPAY ==
--- NOTE | ~2024-07-04 | XR_ITS ---
XR abdomen/kub 1V 07/04/2024 13:26 INDICATION: Flank pain TECHNIQUE: KUB COMPARISON: 06/29/2023 FINDINGS: Bowel gas pattern is normal. There is fecal impaction of the colon. There are cholecystecto my clips. There is no evidence of free air, mass, organomegaly, ascites or obstruction. No abnormal calculi are seen. The bones appear intact. IMPRESSION: 1: Fecal impaction of the colon.. Reviewed, dictated and finalized at location B.
== END 2024-07-04 13:15 ==
LOC: MICIMG 13:15
PROVIDERS: PCP Nurse Practitioner Family; Visit Provider Nurse Practitioner Family
DX: N20.0 Calculus of kidney (principal)
CPT/HCPCS: 74018

== ENCOUNTER 2024-07-28 14:52 | Outpatient (CLI) | payer OTHER, SELFPAY ==
--- NOTE | ~2024-07-28 | CT_ITS ---
EXAMINATION: CT abdomen pelvis wo con DATE: 07/28/2024 15:05 INDICATION: Hydronephrosis. TECHNIQUE: Computed tomography (CT) of the abdomen and pelvis was performed without intravenous contr ast. Automated exposure control and iterative reconstruction technique were employed. The dose-length product was 514.29 mGy-cm. COMPARISON: CT abdomen and pelvis 05/09/2024 FINDINGS: The visualized portions of the lung bases demonstrate minimal atelectasis. A calcified left lung nodule is consistent with old granulomatous disease. No pleural effusion. The heart size is nor mal. No pericardial effusion. The liver and spleen are normal. There are changes of cholecystectomy. The pancreas, adrenal glands, and kidneys are normal. There is no urolithiasis. There are no dilated loops of bowel. There are surgical changes of the stomach. The appendix is normal. There are no patho logically enlarged lymph nodes. There is no free intraperitoneal fluid. There is mild thoracic and iraida mbar spondylosis. IMPRESSION: 1. No urolithiasis. No hydronephrosis. Reviewed, dictated and finalized at location A.
== END 2024-07-28 14:53 | disposition home or self-care (01) ==
LOC: MICIMG 14:52
PROVIDERS: PCP Internal Medicine; Visit Provider Urology
DX: N13.30 Unspecified hydronephrosis (principal)
CPT/HCPCS: 74176

== ENCOUNTER 2025-08-09 12:03 | Outpatient (CLI) | payer OTHER, SELFPAY ==
--- NOTE | ~2025-08-09 | XR_ITS ---
EXAMINATION: XR knee RT 3V, 08/09/2025 12:30 CDT HISTORY: PAIN, JOINT, KNEE, no injury, no surgeries COMPARISON: No comparisons available. Findings: No acute fracture or malalignment. No significant degenerative changes. Soft tissues unremarkable. Impression: No acute fracture or malalignment. Reviewed, dictated and finalized at location A. Impression: No acute fracture or malalignment.
--- NOTE | ~2025-08-09 | XR_ITS ---
EXAMINATION: XR sacroiliac joints min 3V, 08/09/2025 12:30 CDT HISTORY: PAIN, JOINT, KNEE, no inj, no surgeries COMPARISON: No comparisons available. Findings: No acute fracture or malalignment. No sclerosis of the sacroiliac joints with no bridging osteophyte formation or erosions Soft tissues unremarkable. Impression: No acute fracture or malalignment. Reviewed, dictated and finalized at location A. Impression: No acute fracture or malalignment.
--- NOTE | ~2025-08-09 | XR_ITS ---
EXAMINATION: XR knee LT 3V, 08/09/2025 12:30 CDT HISTORY: PAIN, JOINT, KNEE, no injury, no surgeries COMPARISON: No comparisons available. Findings: No acute fracture or malalignment. No significant degenerative changes. Soft tissues unremarkable. Impression: No acute fracture or malalignment. Reviewed, dictated and finalized at location A. Impression: No acute fracture or malalignment.
== END 2025-08-09 12:04 | disposition home or self-care (01) ==
PROVIDERS: PCP Internal Medicine
DX: L40.50 Arthropathic psoriasis, unspecified (principal); M53.3 Sacrococcygeal disorders, not elsewhere classified; M25.561 Pain in right knee; M25.562 Pain in left knee
CPT/HCPCS: 72202; 73562

== ENCOUNTER 2025-10-17 01:13 | Day surgery (SDC) | payer OTHER, SELFPAY ==
[2025-10-02 08:28] VITALS: BMI 29.5
--- OUTSIDE RECORDS SUMMARY | 2025-10-17 01:16 | XMS_ITS | Clinical Summary ---
Author Organization [facility] Address [address] [place] [address] Phone Care Team Providers Care Group Fitness Instructor Name Role Phone Pranay Gilbert DO Primary Care Provider Allergies Active Allergy Reactions Criticality Noted Date Comments Hydroxychloroquine Other (see Comments) Low 019 Prolonged QT Medications DULoxetine (CYMBALTA) [address] Particles Take 60 mg by mouth 2 times daily. Active ALPRAZolam (XANAX) 0.25 MG Tablet 3 times daily as needed. 5 Active Topiramate 50 MG TabletIndicatio ns:Migraine Take 25 mg by mouth daily. Indications: Migraine Headache 1 7 Active cyclobenzaprine (FLEXERIL) 10 MG Tablet Take 10 mg by mouth 3 times daily as needed. Active levothyroxine (Synthroid) 100 MCG Tablet Take by mouth daily. Active ustekinumab (Stelara) 45 MG/0.5ML Solution Prefilled SyringeIndicati ons:Psoriatic Arthritis 45 mg by Subcutaneous route every 90 days. Indications: Psoriasis associated with Arthritis Active Rizatriptan Benzoate 10 MG Tablet Take 10 mg by mouth once as needed for Headaches. May repeat in 2 hours in needed Active Erenumab-aooe (Aimovig) 70 MG/ML Solution Auto-injector by Subcutaneous route every 30 days. Active ketoconazole (NIZORAL) 2 % Shampoo Apply three times a week. Active clobetasol (TEMOVATE) 0.05 % Ointment Apply 2 times daily. Active pantoprazole (PROTONIX) 40 MG Tablet Delayed ResponseIndicat ions:Gastroesop hageal reflux disease without esophagitis Take 1 Tablet by mouth 2 times daily (before meals). Take 30 minutes before a meal with protein 90 Tablet 2 Active lisinopril (PRINIVIL, ZESTRIL) 20 MG Tablet Take 1 Tablet by mouth daily. 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 Abdominal pain 07/30/2021 Overview (11/11/2015): epigastric Immunizations Immunization Administration Dates Next Due Covid-19, Mrna, Lnp-s, Pf, 30 Mcg/0.3 Ml Dose (P fizer) 03/12/2021 Hepatitis A Vaccine 05/22/2000,11/22/1999 Influenza Vaccine 08/30/2017 Influenza Vaccine greater than 3 yrs 09/05/2013 Influenza Vaccine, MDCK,quadrivalent, pres free 08/23/2020,09/04/2019 Influenza, Seasonal, Injectable, Undefined 09/05 Family History Medical History Relation Name Comments Hypertension Father Cancer Maternal Aunt breast Hypertension Mother Arthritis Paternal Grandmother Cancer Paternal Grandmother colon? 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 Gender Identity Not on file Sexual Orientation Not on file Last Filed Vital Signs Vital Sign Reading Time Taken Comments Blood Pressure 148/61 07/04/2025 10:00 PM CDT Pulse 109 07/04/2025 10:00 PM CDT Temperature 36.3 C (97.4 F) 07/04/2025 4:36 PM CDT Respiratory Rate 13 07/04/2025 10:0 0 PM CDT Oxygen Saturation 100% 07/04/2025 10: 00 PM CDT Inhaled Oxygen Concentration - - Weight 85.2 kg (187 lb 13.3 oz) 07/04/2025 4:36 PM CDT Height 167.6 cm (5' 6) 07/04/2025 4:36 PM CDT Body Mass Index 30.32 07/04/2025 4:36 PM CDT Plan of Treatment Health Maintenance Due Date Last Done Comments Hepatitis C Virus (HCV) Screening 1978 TdaP Immunization 1978 Hepatitis B Immunization (1 of 3 - 19+ 3-dose series) 1997 Cologuard 2023 Immunochemical Fecal Occult Blood 2023 Influenza Immunization (#1) 07/23/202508/23, 06/26/2022, 08/23/2020, Additional history exists SARS-COV-2 Immunization ( season) 2025 09/10/2023, 06/26/2022, 08/11/2021, Additional history exists Mammogram 05/02/2026 05/02/2025, 0511/2023, 12/29/2022, Additional history exists Colonoscopy 07/28/2028 07/28/2018, 07/29/2017 Colorectal Cancer Screening 07/28/2028 Respiratory Syncytial Virus (RSV) Immunization (Adult) (1 - 1-dose 75+ series) 2053 Pneumococcal Immunization Combined Aged Out 09/10/2023 No longer eligible based on patient's age to complete this topic Discussion re Starting/Frequency of Mammograms Completed 05/10/2025, 05/02/2025, 03/22/2024, Additional history exists Human Papillomavirus (HPV) Immunization Aged Out No longer eligible based on patient's age to complete this topic Meningococcal Immunization (ACWY) Aged Out No longer eligible based on patient's age to complete this topic Rotavirus Immunization Aged Out No lo nger eligible based on patient's age to complete this topic Procedures Procedure Name Priority Date/Time Associated Diagnosis Comments COLONOSCOPY Routine 07/28/2018 from Last 3 Months or Most Recently Relevant to Health Maintenance Results * COLONOSCOPY (07/28/2018) Cali Reyes DO PROCEDURE/MINOR SURGICAL ORDERA BLES Final Result from Last 3 Months or Most Recently Relevant to Health Maintenance Insurance [facility] Care Teams Group Fitness Instructor Relationship Specialty Start Date End Date Pranay Gilbert DO [facility] [place] [address] PCP - General Internal Medicine 11/22/15
--- OUTSIDE RECORDS SUMMARY | 2025-10-17 01:16 | XMS_ITS | Encounter Summary ---
Author Organization [facility] Healthcare Address [address] [place] [address] Care Team Providers Care Manager Of Marketing Name Role Phone Pranay Gilbert DO Primary Care Provider [phone] Reason for Visit * Reason Onset Date Comments Scheduling Appointments 10/08/2021 Confirmi ng mammogram appt Encounter Details Date Type Department Care Team (Late st Contact Info) Description 10/08/2021 Telephone [facility] [address] [place] [id number] [address] RT Scheduling Appointments (Confirming mammogram appt) Social History Tobacco Use Types Packs/Day Years Used Date Smoking Tobacco: Former Vaping Smokeless Tobacco: Current Alcohol Use Standard Drinks/Week Comments Yes 0 (1 standard drink = 0.6 oz pur e alcohol) Social PHQ-2 Answer Date Recorded PHQ-2 Total Score (If total score is 3 or more points, staff should administer the PHQ-9) 0 10/06/2021 Comments No Sex and Gender Information Value Date Recorded Sex Assigned at Not on file Legal Sex Female 1:44 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
--- OUTSIDE RECORDS SUMMARY | 2025-10-17 01:16 | XMS_ITS | Clinical Summary ---
Author Organization [facility] Address [address] [place] [address] Care Team Providers Care Irrigation Worker Name Role Phone Emmanuel Handy MD, Ritesh Winn Unavailable Un available Source Comments [facility],non-owned Affiliates and Associated Physician Practices is amultiple site organization consisting of ambulatory clinics and hospital sitesin [place], [place], [place] and [place]. This disclosure is being madepursuant to the Care Everywhere program and may not contain all information available regarding this patient. Last updated 18.[facility] Allergies No known active allergies Medications * Be aware that medications may not be up to date on this document. Alwaysverify current medications with the patient. ranitidine (ZANTAC) 300 MG tablet Take 300 mg by mouth daily. Active dicyclomine (BENTYL) 20 MG tablet Take 1 Tab by mouth 4 times daily as needed (pain). 30 Tab 0 0 Active sucralfate (CARAFATE) 1 GM tablet Take 1 Tab by mouth 4 times daily - before meals & nightly. 30 Tab 1 0 Active leflunomide (ARAVA) 20 MG tablet Take 20 mg by mouth once daily Active hydroxychloroq uine (PLAQUENIL) 200 MG tablet Take by mouth once daily Active etodolac (LODINE) 500 MG tablet Take by mouth 2 times daily Active cyclobenzaprin e (FLEXERIL) 10 MG tablet Take 10 mg by mouth 3 times daily as needed for Muscle Spasms Active topiramate (TOPAMAX) 25 MG tablet Take 25 mg by mouth 2 times daily Active DULoxetine (CYMBALTA) 60 MG capsule Take 60 mg by mouth once daily Active levothyroxine (TIROSINT) 50 MCG capsule Take 50 mcg by mouth daily before breakfast Active TRIAMTERENE-HC TZ PO Active adalimumab (HUMIRA) 40 MG/0.8ML injection Inject 40 mg subcutaneously every 14 days Active ARMOUR THYROID PO Active benzonatate (TESSALON) 200 MG capsuleIndicat ions:Bronchiti s Take 1 capsule by mouth 3 times daily as needed for Cough 30 capsule 8 Active Additional Information Patient not taking.Reported on 01/16/2019 Active Problems Problem Noted Date Diagnosed Date Abdominal pain, epigastric 08/22/2010 Social History Tobacco Use Types Packs/Day Years Used Date Smoking Tobacco: Former Smokeless Tobacco: Never Alcohol Use Standard Drinks/Week Comments Yes 1.7 (1 standard drink = 0.6 oz p ure alcohol) Comments Unknown Sex and Gender Information Value Date Recorded Sex Assigned at Not on file Legal Sex Female 11:53 AM CDT Gender Identity Not on file Sexual Orientation Not on file Last Filed Vital Signs Vital Sign Reading Time Taken Comments Blood Pressure 136/88 01/16/2019 3:34 PM 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 Pulse 101 01/16/2019 3:34 PM 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 Temperature 37.1 C (98.7 F) 01/16/2019 3:34 PM 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 Respiratory Rate 16 01/16/2019 3:34 PM 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 Oxygen Saturation 97% 01/16/2019 3:34 PM 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 Inhaled Oxygen Concentration - - Weight 103 kg (227 lb) 01/16/2019 3:34 PM 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 Height 167.6 cm (5' 6) 01/16/2019 3:34 PM 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 Body Mass Index 36.64 01/16/2019 3:34 PM 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 Plan of Treatment Health Maintenance Due Date Last Done Comments COLOGUARD (AGES 45-75) - COL ON CA SCREENING 1978 COLON MONITORING 1978 COLONOSCOPY - COLON CA SCREENING 1978 CT COLONOGRAPHY - COLON CA SCREENING 1978 Colorectal Cancer Screening 1978 FIT - COLON CA SCREENING 1978 FLEX SIG - COLON CA SCREENING 1978 LIPID TESTING 1978 MAMMOGRAM 1978 HIV SCREENING 1993 HEPATITIS C SCREENING 06/17/1996 DTAP/TDAP/TD VACCINES (1 - Tdap) 1997 HEPATITIS B VACCINE (1 of 3 - 19+ 3-dose series) 1997 Cervical Cancer Screening 1999 PAP SMEAR 1999 PAP with HPV 2008 SCREENING FOR DIABETES 01/16/2019 08/22/2010 DEPRESSION SCREENING 11/22/2024 COVID-19 VACCINE (1 - 2024-2 6 season) 2025 INFLUENZA VACCINE (#1) 2025 5, 09/05/2013 ZOSTER VACCINE (1 of 2) 2028 HIB VACCINE Aged Out No longer eligi ble based on patient's age to complete this topic HPV VACCINE Aged Out No longer eligi ble based on patient's age to complete this topic MENINGOCOCCAL (Group B) VACCINE SHARED DECISION-MAKING Aged Out No longer eligible based on patient's age to complete this topic MENINGOCOCCAL GROUPS A/C/Y/W VACCINE Aged Out No longer eligible b ased on patient's age to complete this topic PNEUMOCOCCAL VACCINE Aged Out No long er eligible based on patient's age to complete this topic Procedures Procedure Name Priority Date/Time Associated Diagnosis Comments COMPREHENSIVE METABOLIC PANEL STAT 08/22/2010 10:00 AM CDT from Last 3 Months or Most Recently Relevant to Health Maintenance Results * (ABNORMAL) COMPREHENSIVE METABOLIC PANEL (08/22/2010 10:00 AM CDT) BUN 10 7.0 - 17.0 mg/dl [facility] Sodium 137 137 - 145 mmol/L [facility] Potassium 4.7 3.6 - 5.0 mmol/L [facility] Chloride 102 98.0 - 107.0 mmol/L [facility] Glucose 96 75 - 110 mg/dl [facility] Creatinine 0.8 0.52 - 1.05 mg/dl [facility] AST 41(H) 14.0 - 36.0 U/L [facility] Alkaline Phosphatase 74 38.0 - 126.0 U/L [facility] Calcium 9.1 8.4 - 10.2 mg/dl [facility] Bilirubin Total 0.3 0.2 - 1.3 mg/dl [facility] Albumin 4.0 3.5 - 5.0 gm/dl [facility] Protein Total 7.1 6.3 - 8.2 gm/dl [facility] CO2 27 22.0 - 30.0 mEq/L [facility] ALT 20 9.0 - 52.0 U/L [facility] eGFR by MDRD 83.12 ml/min/1.7 3m2 [facility] BLOOD SPECIMEN / Unknown 08/22/2010 10:00 AM CDT 08/22/2010 10:00 AM CDT Rashawn Long MD LAB - CHEMISTRY ORDERABLES Kennedi jung Result [facility] [id number] [place] [address] from Last 3 Months or Most Recently Relevant to Health Maintenance Insurance [facility] [place] [address] [facility] Care Teams Irrigation Worker Relationship Specialty Start Date End Date Ritesh Benitez Jr., MD 02/20/18
--- OUTSIDE RECORDS SUMMARY | 2025-10-17 01:16 | XMS_ITS | Clinical Summary ---
Author Organization [facility] unty Address [address] [place] [address] Phone Care Team Providers Care Obstetrics And Gynecology Professor Name Role Phone Pranay Gilbert DO Primary Care Provider Allergies Active Allergy Reactions Criticality Noted Date Comments Hydroxychloroquine Other (See Comments) Low 019 Prolonged QT Medications DULoxetine (CYMBALTA) 60 mg Capsule, Delayed Release(E.C.) Take 60 mg by mouth daily. Active linaCLOtide (Linzess) 145 mcg capsule TAKE 1 CAPSULE BY MOUTH DAILY NEEDED FOR CONSTIPATION 02/02/20 22 Active lisinopriL (PRINIVIL) 2.5 mg tablet 08/20/20 22 Active naproxen sodium (ANAPROX DS) 550 mg tablet TAKE 1 TABLET BY MOUTH WITH THE FIRST TRIPTAN DOSE DAILY NEEDED FOR MIGRAINE 08/24/20 22 Active pantoprazole (PROTONIX) 40 mg Tablet, Delayed Release (E.C.) 07/27/20 22 Active rizatriptan (MAXALT) 10 mg Tablet Take 10 mg by mouth. Active rimegepant (Nurtec ODT) 75 mg Tablet, Rapid Dissolve Take by mouth. Active certolizumab Pegol (Cimzia) 400 mg/2 mL (200 mg/mL x 2) Syringe Kit Inject 400 mg by subcutaneous injection one time only. Active busPIRone (BUSPAR) 5 mg tablet Take 5 mg by mouth 3 times daily. Active estradioL 0.075 mg/24 hr patch APPLY 1 PATCH TOPICALLY TO THE SKIN 2 TIMES A WEEK 06/23/20 Active estradioL (ESTRACE) 0.01% (0.1 mg/g) vaginal cream INSERT 0.5 GRAM INTRAVAGINALLY 2 TIMES A WEEK NEEDED 07/26/20 Active Ubrelvy 100 mg tablet 08/15/20 Active Qulipta 60 mg Tablet Take 1 Tablet by mouth daily. 09/04/20 24 Active Synthroid 100 mcg tablet TAKE 1 TABLET EVERY MORNING WITHOUT FOOD 90 Tablet 08/08/20 Active tiZANidine (ZANAFLEX) 2 mg Capsule Take 4 mg by mouth. Active traZODone (DESYREL) 50 mg tablet Take 50 mg by mouth daily at bedtime. 09/01/20 Active cream base no.52, bulk, Cream Testosterone cream 0.3%. Apply 1 mL to inner thigh daily 01/10/20 Active semaglutide, weight loss, (WEGOVY) 0.25 mg/0.5 mL Pen Injector Inject 0.5 mL (0.25 mg) by subcutaneous injection every 7 days. 2 mL 1 09/27/20 25 Active semaglutide, weight loss, (WEGOVY) 0.25 mg/0.5 mL Pen Injector Inject 0.5 mL (0.25 mg) by subcutaneous injection every 7 days. 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 Endocrinology [address] [place] [address] Leelee Smith MD Medication Question; Needs Form Or Letter Filled Out (wegovy) 09/19/2025 External Device Data STL ABSTRACTION Provider, Abstract 09/19/2025 External Device Data STL ABSTRACTION Provider, Abstract 09/11/2025 External Device Data STL ABSTRACTION Provider, Abstract 08/08/2025 External Device Data STL ABSTRACTION Provider, Abstract 08/08/[address] [facility] Endocrinology [address] [place] [address] Leelee Smith MD 08/07/2025 External Device Data STL ABSTRACTION Provider, Abstract from Last 3 Months Family History Medical History Relation Name Comments Heart Disease Father High Cholesterol Father Hypertension Father Hypertension Mother Thyroid Disease Mother Relation Name Status Comments Father Mother Social History Tobacco Use Types Packs/Day Years Used Date Smoking Tobacco: Every Day E-Cigarette/M ist Inhalation Device Tobacco Cessation:Ready to Q uit: Not Asked; Counseling Given: Not Answered Alcohol Use Standard Drinks/Week Comments Yes 0.8 (1 standard drink = 0.6 oz p ure alcohol) Comments No Sex and Gender Information Value Date Recorded Sex Assigned at Not on file Legal Sex Female 6:05 AM LUBRICATION EQUIPMENT SERVICER Gender Identity Not on file Sexual Orientation Not on file Occupation Industry Job Start Date Job End Date Not on file Not on file Not on file Not on file Last Filed Vital Signs Vital Sign Reading Time Taken Comments Blood Pressure 111/77 09/26/2025 10:50 AM LUBRICATION EQUIPMENT SERVICER Pulse 71 09/26/2025 10:50 AM LUBRICATION EQUIPMENT SERVICER Temperature 36.4 C (97.6 F) 03/22/2019 11:38 AM CDT Respiratory Rate 18 03/22/2019 11:38 AM CDT Oxygen Saturation 96% 09/27/2024 11:00 AM LUBRICATION EQUIPMENT SERVICER Inhaled Oxygen Concentration - - Weight 85.3 kg (188 lb) 09/26/2025 10:50 AM LUBRICATION EQUIPMENT SERVICER Height 167.6 cm (5' 6) 09/26/2025 10:50 AM LUBRICATION EQUIPMENT SERVICER Body Mass Index 30.34 09/26/2025 10:50 AM LUBRICATION EQUIPMENT SERVICER Plan of Treatment Upcoming Encounters Date Type Department Care Team (Late st Contact Info) Description 09/26/2026 11:15 AM LUBRICATION EQUIPMENT SERVICER Office Visit [facility] Endocrinology [address] [place] [address] Leelee Smith MD [address] [place] [address] Health Maintenance Due Date Last Done Comments DTAP/TDAP/TD VACCINES (1 - Tdap) 1997 HEPATITIS B VACCINES (1 of 3 - 19+ 3-dose series) 1997 HPV/Cotest (21-29) 1999 CERVICAL CANCER SCREENING 2008 HPV/Cotest (30-65) 2008 PAP SMEAR 2008 Pre-Diabetes and Diabetes Screening 07/05/2022 07/05/2019 FIT-DNA Q 3 years 2023 FIT/FOBT Q 1 year 2023 Flex Sig/CT Colonography Q 5 years 2023 INFLUENZA VACCINE (#1) 2025 0, 09/04/2019, 08/30/2017, Additional history exists COVID-19 Vaccine (2 - 2024-2 6 season) 2025 03/12/2021 BREAST CANCER SCREENING 05/10/2026 05/10/20 25, 05/02/2025, 05/02/2025, Additional history exists COLORECTAL SCREENING 07/28/2028 07/28/2018 Colorectal Cancer Screening 07/28/2028 Procedures Procedure Name Priority Date/Time Associated Diagnosis Comments HEMOGLOBIN A1C Routine 07/05/2019 10:35 AM CDT Sweating profusely Polydipsia Weight gain Morbid obesity with body mass index of 40.0-49.9 (CMS/[facility]) from Last 3 Months or Most Recently Relevant to Health Maintenance Results * HEMOGLOBIN A1C (07/05/2019 10:35 AM CDT) HEMOGLOBIN A1C 5.0 <5.7 % 07/05/2019 12:02 PM CDT [facility] EST. AVG GLUCOSE, A1C 97 mg/dL 07/05/2019 12:02 PM CDT [facility] Blood Venipuncture / Unknown 07/05/2019 10:35 AM CDT 07/05/2019 10:39 AM CDT Narrative [facility] - 07/05/2019 12:02 PM CDT HGB A1C INTERPRETATION NORMAL: <5.7% PRE-DIABETES: 5.7 - 6.4% DIABETES: 6.5% OR GREATER us Leelee Smith MD CHEMISTRY ORDERABLES Final Re sult [facility] [facility] CLIA# [id number] [address] [place] [address] from Last 3 Months or Most Recently Relevant to Health Maintenance Insurance [employer] [facility] [id number] Care Teams Obstetrics And Gynecology Professor Relationship Specialty Start Date End Date Pranay Gilbert DO [facility] - General 11/07/15
--- OUTSIDE RECORDS SUMMARY | 2025-10-17 01:16 | XMS_ITS | Encounter Summary ---
Author Organization [facility] Healthcare Address [address] [place] [address] Care Team Providers Care Side Laster Staple Name Role Phone Pranay Gilbert DO Primary Care Provider [phone] Reason for Visit * Reason Onset Date Comments Scheduling Appointments 09/23/2021 confirmi ng mamm appt- na Encounter Details Date Type Department Care Team (Late st Contact Info) Description 09/23/2021 Telephone [facility] [address] [place] [id number] Adeline Day RT Scheduling Appointments (confirming mamm appt- na) Social History Tobacco Use Types Packs/Day Years Used Date Smoking Tobacco: Former Smokeless Tobacco: Current Alcohol Use Standard Drinks/Week Comments Yes 0 (1 standard drink = 0.6 oz pur e alcohol) Social PHQ-2 Answer Date Recorded PHQ-2 Total Score (If total score is 3 or more points, staff should administer the PHQ-9) 0 09/23/2020 Comments No Sex and Gender Information Value Date Recorded Sex Assigned at Not on file Legal Sex Female 1:44 AM SPRAY PAINTER Gender Identity Female 12/02/2021 7:16 PM SPRAY PAINTER Sexual Orientation Straight 12/02/2021 7: 16 PM SPRAY PAINTER documented as of this encounter Plan of Treatment Not on file documented as of this encounter Visit Diagnoses Not on filedocumented in this encounter Care Teams Side Laster Staple Relationship Specialty Start Date End Date Pranay Gilbert DO PCP - General 02/19/17 documented as of this encounter
--- OUTSIDE RECORDS SUMMARY | 2025-10-17 01:16 | XMS_ITS | Clinical Summary ---
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
[2025-10-17 06:42] VITALS: BP 135/79; PULSE 70; RESP 16; TEMP 36.2; O2SAT 100
[2025-10-17] MEDS: LACTATED RINGERS 1,000 ML 150 ML IV CONT (06:56)
--- NOTE | 2025-10-17 07:14 | WPDANESEPPF ---
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 Patient Data Age: 45 Gender: F Height: 1.68 m Weight: 84.4 kg Last Vital Signs Temp 97.2 F L 10/17/25 06:42 Pulse 70 10/17/25 06:42 Resp 16 10/17/25 06:42 BP 135/79 10/17/25 06:42 Pulse Ox 100 10/17/25 06:42 O2 Del Method Room Air 10/17/25 06:42 Allergies Allergy/AdvReac Type Severity Reaction Status Date / Time hydroxychloroquine AdvReac Other Verified 10/17/25 06:37 Home Medications ?Medication ?Instructions ?Recorded ?Confirmed ?Type duloxetine 60 mg capsule,delayed 60 mg PO BID 10/05/19 10/17/25 History release (Cymbalta) levothyroxine 100 mcg tablet 100 mcg PO DAILY 11/19/20 10/17/25 History (Synthroid) certolizumab pegol 400 mg/2 mL 400 mg subcut ONCE 08/27/23 10/17/25 History (200 mg/mL x2) subcutaneous syringe kit (Cimzia) atogepant 60 mg tablet (Qulipta) 60 mg PO DAILY 12/07/23 10/17/25 History ubrogepant 100 mg tablet (Ubrelvy) 100 mg PO ONCE PRN Headache 12/07/23 10/02/25 History estradiol 0.01% (0.1 mg/gram) 0.01 appful vaginal 2XW 02/18/24 10/17/25 History vaginal cream estradiol 0.05 mg/24 hr semiweekly 0.05 patch topical 2XW 02/18/24 10/17/25 History transdermal patch tizanidine 4 mg tablet (Zanaflex) 4 mg PO .QD PRN muscle spasticity 07/09/25 10/17/25 Rx #30 tabs trazodone 50 mg tablet 50 mg PO QHS PRN insomnia 07/09/25 10/17/25 History hydrochlorothiazide 12.5 mg tablet 12.5 mg PO DAILY #90 tabs 07/27/25 08/29/25 Rx lisinopril 30 mg tablet 30 mg PO DAILY #90 tabs 07/27/25 10/17/25 Rx tenapanor 50 mg tablet (Ibsrela) 50 mg PO BID #60 tabs 08/29/25 08/29/25 Rx linaclotide 290 mcg capsule 290 mcg PO QAM #90 caps 09/21/25 10/17/25 Rx (Linzess) pantoprazole 40 mg tablet,delayed 40 mg PO BID #180 tabs 10/03/25 10/17/25 Rx release Patient hx anesthesia problems: none Family hx anesthesia problems: none Results Review: All pre-operative results and documents have been reviewed as part of the pre-operative evaluation. FORMERLY [facility], [facility] Past Medical History Medical History Dizziness Elevated blood pressure reading Abdominal fullness Abdominal bloating Left carpal tunnel syndrome Numbness and tingling of upper extremity Opacity of lung on imaging study Cough Abnormal CT scan Hospital discharge follow-up Left tennis elbow COVID Calcium oxalate crystals present in urine UTI symptoms Abdominal pain Karimi esophagus GERD (gastroesophageal reflux disease) Colon cancer screening Irritable bowel syndrome with constipation Bloating Ileus Yeast infection Constipation H/O Magdalena thyroiditis Fibromyalgia Psoriatic arthritis Cholecystectomy planned 1998 History of ITP Depression Bronchitis Chicken pox Allergies Migraine Thyroid disease Hot flashes Hypertension Obesity Surgical History Surgical History Hx of laparoscopic gastric banding History of Mayur fundoplication 2016 History of partial hysterectomy 07/2015 Family History Family History Grandparent Family history of malignant neoplasm of breast in first degree relative Cerebrovascular accident Father Depression Hypertension Anxiety Mother Hypertension Thyroid disease Social History Social History Smoking packs per day: 0.5 Smoking cigarettes per day: 10.0 Years smoked: 15 Smoking pack-years: 7.50 Smoking status: Former smoker Tobacco type: cigarettes Smoking end date: 11/22/08 Additional smoking assessment comments: Currently vaping Alcohol intake: current Drinks per week: 2 Alcohol use details: socially Substance use: never Substance use type: does not use Lack of Transportation: No Lack of Food: Never True Current Housing: I Have Housing Concerned About Future Housing: No Difficulty Paying Gas/Electric Bills: No Difficulty Paying for Meds: No Currently Unemployed: No Education: Bachelor's Degree Difficulty w/ Childcare or Family Care: No Living arrangements: with family Spiritual care concerns: No Anes - Eval Final PreProcedure Day of Procedure 10/17/25 07:14 Patient weight: obese Lungs: normal air movement Airway: Mallampati scale class II Neurological: alert and oriented Last oral intake: >/= 8 hours ASA classification: III Emergent: no Anesthetic plan: proceed Anesthesia type and monitoring: general GIVS and standard monitoring Results Review: All pre-operative results and documents have been reviewed as part of the pre-operative evaluation. HTN, hypothyroidism, vapes daily, ex smoker, now w dysphagia. Pt active w 1-2 fos, no cp or sob. Informed Consent: The patient's anesthetic plan and its attendant risks and benefits were discussed with the patient/family/POA. Questions were solicited and answers provided to the satisfaction of the patient/family/POA.
--- NOTE | 2025-10-17 07:28 | PM.HPGS ---
History of Present Illness History of Present Illness Consent: Risks, benefits, and alternatives have been discussed and questions answered. Patient agrees to proceed with procedure. Chief complaint: Ellis's esophagus without dysplasia Narrative: Ella Cheung is a 45 year old female here for egd, history of gastric sleeve for weight loss, rolan fundoplication was reversed after sleeve, psoriasis (initially on humira then stelara but had may infections and most recently on cimzia). Since had COVID 2020 with more reflux and other GI issues. Last EGD 2022 mild gastritis, no h pylori, no celiac, no obvious ellis's but 2018 had ellis's. Most recently noted every 2-3 weeks some difficulty after swallowing pills and will have to regurgitate. Review of Systems Review of Systems: All systems reviewed & are unremarkable except as noted in HPI and below PMFSH Past Medical History Medical History Dizziness Elevated blood pressure reading Abdominal fullness Abdominal bloating Left carpal tunnel syndrome Numbness and tingling of upper extremity Opacity of lung on imaging study Cough Abnormal CT scan Hospital discharge follow-up Left tennis elbow COVID Calcium oxalate crystals present in urine UTI symptoms Abdominal pain Ellis esophagus GERD (gastroesophageal reflux disease) Colon cancer screening Irritable bowel syndrome with constipation Bloating Ileus Yeast infection Constipation H/O Magdalena thyroiditis Fibromyalgia Psoriatic arthritis Cholecystectomy planned 1998 History of ITP Depression Bronchitis Chicken pox Allergies Migraine Thyroid disease Hot flashes Hypertension Obesity Surgical History Surgical History Hx of laparoscopic gastric banding History of Rolan fundoplication 2015 History of partial hysterectomy 07/2015 Family History Family History Grandparent Family history of malignant neoplasm of breast in first degree relative Cerebrovascular accident Father Depression Hypertension Anxiety Mother Hypertension Thyroid disease Social History Social History Smoking packs per day: 0.5 Smoking cigarettes per day: 10.0 Years smoked: 15 Smoking pack-years: 7.50 Smoking status: Former smoker Tobacco type: cigarettes Smoking end date: 11/22/08 Additional smoking assessment comments: Currently vaping Alcohol intake: current Drinks per week: 2 Alcohol use details: socially Substance use: never Substance use type: does not use Lack of Transportation: No Lack of Food: Never True Current Housing: I Have Housing Concerned About Future Housing: No Difficulty Paying Gas/Electric Bills: No Difficulty Paying for Meds: No Currently Unemployed: No Education: Bachelor's Degree Difficulty w/ Childcare or Family Care: No Living arrangements: with family Spiritual care concerns: No Meds Home Medications and Allergies Home Medications ?Medication ?Instructions ?Recorded ?Confirmed ?Type duloxetine 60 mg capsule,delayed 60 mg PO BID 10/05/19 10/17/25 History release (Cymbalta) levothyroxine 100 mcg tablet 100 mcg PO DAILY 11/19/20 10/17/25 History (Synthroid) certolizumab pegol 400 mg/2 mL 400 mg subcut ONCE 08/27/23 10/17/25 History (200 mg/mL x2) subcutaneous syringe kit (Cimzia) atogepant 60 mg tablet (Qulipta) 60 mg PO DAILY 12/07/23 10/17/25 History ubrogepant 100 mg tablet (Ubrelvy) 100 mg PO ONCE PRN Headache 12/07/23 10/02/25 History estradiol 0.01% (0.1 mg/gram) 0.01 appful vaginal 2XW 02/18/24 10/17/25 History vaginal cream estradiol 0.05 mg/24 hr semiweekly 0.05 patch topical 2XW 02/18/24 10/17/25 History transdermal patch tizanidine 4 mg tablet (Zanaflex) 4 mg PO .QD PRN muscle spasticity 07/09/25 10/17/25 Rx #30 tabs trazodone 50 mg tablet 50 mg PO QHS PRN insomnia 07/09/25 10/17/25 History hydrochlorothiazide 12.5 mg tablet 12.5 mg PO DAILY #90 tabs 07/27/25 08/29/25 Rx lisinopril 30 mg tablet 30 mg PO DAILY #90 tabs 07/27/25 10/17/25 Rx tenapanor 50 mg tablet (Ibsrela) 50 mg PO BID #60 tabs 08/29/25 08/29/25 Rx linaclotide 290 mcg capsule 290 mcg PO QAM #90 caps 09/21/25 10/17/25 Rx (Linzess) pantoprazole 40 mg tablet,delayed 40 mg PO BID #180 tabs 10/03/25 10/17/25 Rx release Allergies Allergy/AdvReac Type Severity Reaction Status Date / Time hydroxychloroquine AdvReac Other Verified 10/17/25 06:37 Vital Signs Vital Signs - 24 hr 10/17/25 06:42 Temperature 97.2 F L Pulse Rate 70 Respiratory Rate 16 Blood Pressure 135/79 Pulse Oximetry 100 Oxygen Delivery Room Air Exam Const: General: comfortable and no acute distress HENMT: Face/Nose/Sinus: Normal nares present Eyes: General: appearance normal, both eyes and all related structures Neck: Neck: no JVD Resp: Auscultation: clear to auscultation bilaterally Cardio: Rate: regular rate Rhythm: regular rhythm GI: Inspection: non-distended GI Palp: Yes Soft to palpation Skin: General skin exam: normal color Extrem: General: normal to inspection Psych: Mental Status: mental status grossly normal Assessment and Plan Assessment and plan (1) GERD (gastroesophageal reflux disease): Code(s): K21.9 - Gastro-esophageal reflux disease without esophagitis Status: Acute Assessment and Plan: egd
[2025-10-17 07:34] VITALS: BP 122/73; PULSE 73; RESP 21; O2SAT 98
--- NOTE | 2025-10-17 07:34 | S_PTH ---
PATIENT: Ella Cheung LOC: [facility]#:[id number] AGE/SX: 45/F ROOM: RE10/17/[address]: Aryan Case MD : 1980 BED: DIS: 10/17/2025 SPEC #: [id number] RECD: 10/17/25 07:48 STATUS: JOANN DON #: [id number] MARI: 10/17/25 07:[address]: Aryan Case DEPT: [facility] Surgical RECD BY: Theodora Acharya ENTERED: 10/17/25 07:48 SP TYPE: Surgical OTHR DR: Pranay Gilbert DO Tissues: A - Gastric Biopsy B - Esophageal Biopsy Procedures: Hematoxylin and Eosin Stain Gross and Microscopic Level 4
[2025-10-17 07:44] VITALS: BP 115/67; PULSE 82; RESP 22; O2SAT 100
[2025-10-17 07:54] VITALS: BP 116/76; PULSE 76; RESP 17; O2SAT 100
== END 2025-10-17 08:03 | disposition home or self-care (01) ==
PROVIDERS: PCP Internal Medicine; Referring Provider Internal Medicine Gastroenterology; Visit Provider Internal Medicine Gastroenterology
PROC: 0DJ08ZZ Inspection of Upper Intestinal Tract, Via Natural or Artificial Opening Endoscopic (ICD-10-PCS; CPT 43239; principal; 2025-10-17 07:30)
DX: K21.9 Gastro-esophageal reflux disease without esophagitis (principal); K44.9 Diaphragmatic hernia without obstruction or gangrene; K29.70 Gastritis, unspecified, without bleeding; F17.290 Nicotine dependence, other tobacco product, uncomplicated; E66.9 Obesity, unspecified; Z68.30 Body mass index [BMI] 30.0-30.9, adult
CPT/HCPCS: 43239; 88305; J2704; J7120